=== PATIENT | female | born 1985 | race Caucasian/White ===

== ENCOUNTER 2020-03-21 17:59 | Emergency (ER) | payer SELFPAY ==
[2020-03-21 18:12] VITALS: BP 134/92; PULSE 83; RESP 18; TEMP 36.9; O2SAT 97
--- NOTE | 2020-03-21 18:24 | ED.SKABFB ---
HPI - Skin/Abscess/Foreign Bdy General Chief complaint: Skin/Abscess/Foreign Body Stated complaint: wound on head Time Seen by Provider: 03/21/20 18:01 Source: patient Mode of arrival: ambulatory Limitations: no limitations History of Present Illness HPI narrative: Patient is a 34-year-old female who presents with a rash to forehead x2 to 3 days. Patient has a history of thrombocytosis. She denies any other past medical history. Patient reports rash started as pimples . She reports she squeezed pimples and the area had spread by next a.m. Patient reports using warm compresses without relief. She denies other complaints. MD complaint: rash and lesion Related Data Home Medications Medication Instructions Recorded Confirmed aspirin [Adult Low Dose Aspirin] PO 03/21/20 Allergies Allergy/AdvReac Type Severity Reaction Status Date / Time amoxicillin Allergy Unknown RASH/NUMBNESS Verified 03/21/20 18:21 IN TONGUE clavulanic acid Allergy Unknown RASH/NUMBNESS Verified 03/21/20 18:21 IN TONGUE Review of Systems Review of Systems: Narrative: CONSTITUTIONAL: Denies fever, chills, or sweats. EYES: Denies visual changes, redness, or discharge. ENT: Denies rhinorrhea, congestion, sore throat, or otalgia. CARDIOVASCULAR: Denies chest pain, palpitations, or edema. RESPIRATORY: Denies cough or dyspnea. GASTROINTESTINAL: Denies abdominal pain, nausea, vomiting, or diarrhea. GENITOURINARY: Denies dysuria or hematuria. SKIN: Rash to forehead. MUSCULOSKELETAL: Denies back pain, joint pain, or myalgia. NEUROLOGIC: Denies headache, numbness, dizziness, or weakness. PSYCHIATRIC: Denies anxiety or depression. [facility] Past Medical History Medical History (Updated 03/21/20 @ 18:37 by ANUM Wang) Thrombocytosis Surgical History Surgical History (Updated 03/21/20 @ 18:32 by ANUM Wang) No significant past surgical history Social History Social History (Updated 03/21/20 @ 18:33 by ANUM Wang) Smoking status: Never smoker Alcohol intake: current Alcohol use details: occasional Substance use: never Living arrangements: alone Occupation/Education: occupation Gender identity (if verbalized by the patient): Female Exam Narrative: Exam Narrative: GENERAL: Well-appearing, well-nourished, and in no acute distress. HEAD: Normocephalic, atraumatic. EYES: No redness or drainage. ENT: Mucous membranes pink and moist. Nares clear. No rhinorrhea. TMs normal bilaterally. Throat normal. Uvula midline. NECK: AROM. Supple. No lymphadenopathy. CHEST: No respiratory distress. Clear to auscultation. HEART: Regular rate and rhythm. No murmur appreciated. Normal peripheral pulses. EXTREMITIES: Normal range of motion. SKIN: Warm, dry, no rash. NEURO: No focal deficits. Alert and oriented x3. Gait steady. PSYCH: Normal affect. No signs of depression or anxiety. Course Vital Signs Vital signs: Vital Signs Temperature 36.9 C 03/21/20 18:12 Pulse Rate 83 03/21/20 18:12 Respiratory Rate 18 03/21/20 18:12 Blood Pressure 134/92 H 03/21/20 18:12 Pulse Oximetry 97 03/21/20 18:12 Temperature 36.9 C 03/21/20 18:12 Pulse Rate 83 03/21/20 18:12 Respiratory Rate 18 03/21/20 18:12 Blood Pressure 134/92 H 03/21/20 18:12 Pulse Oximetry 97 03/21/20 18:12 MDM - Skin/Abscess/Foreign Bdy MDM Narrative Medical decision making narrative: Patient appears to have rash with mild cellulitis to her forehead. No drainage at this time. Patient to be started on Mupirocin ointment and clindamycin as infection most likely MRSA from patient's initial description. Patient reports that she may be allergic to TMP/SMX. Patient is stable for discharge to home with outpatient follow-up. Patient aware of signs and symptoms that would cause further evaluation. Differential Diagnosis Differential diagnosis: Likely abscess of skin or subcutaneous tissue and impetigo
== END 2020-03-21 19:00 | disposition home or self-care (01) ==
PROVIDERS: Emergency Provider Nurse Practitioner; PCP Internal Medicine Gastroenterology
DX: L01.00 Impetigo, unspecified (principal); L03.211 Cellulitis of face; Z79.82 Long term (current) use of aspirin
CPT/HCPCS: 99283

== ENCOUNTER 2020-07-03 17:37 | Emergency (ER) | payer BC, SELFPAY ==
--- NOTE | 2020-07-03 17:41 | ED.GENADULT ---
HPI - General Adult General Chief complaint: Skin/Abscess/Foreign Body Stated complaint: Forehead Swollen Time Seen by Provider: 07/03/20 17:41 Source: patient Mode of arrival: ambulatory Limitations: no limitations History of Present Illness HPI narrative: 34-year-old female patient presents to the [facility] with complaints of a wound to the middle of the forehead. Patient states back in March 2020 she had a pimple to the middle forehead that she popped and ended up getting infected and she stated that she was seen at [place] [facility] they diagnosed her with a staph infection and treated her with some oral clindamycin. Patient states it is starting to heal up but it feels like it never completely healed all the way. Patient states there was some little red dots there that she noticed a couple of days ago and states that she tried to cleanse it with alcohol yesterday and today is caused it to become more red, dry and feels like she has swelling to the forehead area. Denies any fevers, body aches or chills. Denies any discharge coming from the wound. Denies putting anything on the wound besides the alcohol. Related Data Allergies Allergy/AdvReac Type Severity Reaction Status Date / Time amoxicillin Allergy Intermediate RASH/NUMBNESS Verified 07/03/20 17:41 IN TONGUE clavulanic acid Allergy Intermediate RASH/NUMBNESS Verified 07/03/20 17:42 IN TONGUE Review of Systems Review of Systems: Narrative: CONSTITUTIONAL: Denies fever, chills, or sweats. EYES: Denies visual changes, redness, or discharge. ENT: Denies rhinorrhea, congestion, sore throat, or otalgia. CARDIOVASCULAR: Denies chest pain, palpitations, or edema. RESPIRATORY: Denies cough or dyspnea. GASTROINTESTINAL: Denies abdominal pain, nausea, vomiting, or diarrhea. GENITOURINARY: Denies dysuria or hematuria. SKIN: Denies rash or itching. Positive wound to forehead since yesterday MUSCULOSKELETAL: Denies back pain, joint pain, or myalgia. NEUROLOGIC: Denies headache, numbness, or weakness. PSYCHIATRIC: Denies anxiety or depression. [facility] Past Medical History Medical History Thrombocytosis Surgical History Surgical History No significant past surgical history Social History Social History Smoking status: Never smoker Alcohol intake: current Substance use: never Gender identity (if verbalized by the patient): Female Comments At the time of my signature I agree with nursing past medical history, surgical, social, and family history. There is no relevant family history pertinent to the presenting complaint. Exam Narrative: Exam Narrative: GENERAL: Well-appearing, well-nourished, and in no acute distress. HEAD: Normocephalic, atraumatic. EYES: PERRLA and EOMI. ENT: Nares clear, no rhinorrhea or epistaxis. Mucous membranes moist. NECK: Supple. No lymphadenopathy CHEST: Clear to auscultation. No respiratory distress. HEART: Regular rate and rhythm. No murmur heard. Normal peripheral pulses. ABDOMEN: Soft, nontender, nondistended, normal active bowel sounds. EXTREMITIES: Normal range of motion. No edema. SKIN: Warm, dry, no rash. Patient has approximately 1/2 cm in diameter flat scaly dry erythemic wound area to the middle of the forehead. Very slight swelling noted but no warmth. No active discharge. NEURO: No focal deficits. Alert and oriented x3. Course Vital Signs Vital signs: Vital Signs Temperature 36.6 C 07/03/20 17:58 Pulse Rate 79 07/03/20 17:58 Respiratory Rate 17 07/03/20 17:58 Blood Pressure 144/88 H 07/03/20 17:58 Pulse Oximetry 100 07/03/20 17:58 Temperature 36.6 C 07/03/20 17:58 Pulse Rate 79 07/03/20 17:58 Respiratory Rate 17 07/03/20 17:58 Blood Pressure 144/88 H 07/03/20 17:58 Pulse Oximetry 100 07/03/20 17:58 Vital signs reviewed
[2020-07-03 17:58] VITALS: BP 144/88; PULSE 79; RESP 17; TEMP 36.6; O2SAT 100
== END 2020-07-03 18:15 | disposition home or self-care (01) ==
PROVIDERS: Emergency Provider Nurse Practitioner Family; PCP Internal Medicine Gastroenterology
DX: S01.80XD Unspecified open wound of other part of head, subsequent encounter (principal); X58.XXXD Exposure to other specified factors, subsequent encounter; D47.3 Essential (hemorrhagic) thrombocythemia
CPT/HCPCS: 99213; G0463

== ENCOUNTER 2021-02-21 11:01 | Emergency (ER) | payer BC, SELFPAY ==
[2021-02-21 11:10] VITALS: BP 92/62; PULSE 107; RESP 18; TEMP 37.1; O2SAT 98
--- NOTE | 2021-02-21 11:33 | ED.URI ---
HPI - URI/Sore Throat General Chief Complaint: Upper Respiratory Infection Stated Complaint: EARACHE/COUGH/FEVER S/P COVID Time Seen by Provider: 02/21/21 11:23 Source: patient and RN notes reviewed Mode of arrival: ambulatory Limitations: no limitations History of Present Illness HPI Narrative: Patient presents today complaining of right ear pain, postnasal drip leading to cough that is worse at night. Patient just recovered from COVID-19. While she was COVID-19 positive, she was diagnosed with a right otitis media and given Z-Regino from a local urgent care. Patient states her symptoms did not improve after she took it. She currently rates her ear pain 5/10 has been taking Tylenol with mild relief. MD elicited complaint: cough and other (Ear pain) Related Data Allergies Allergy/AdvReac Type Severity Reaction Status Date / Time amoxicillin Allergy Intermediate RASH/NUMBNESS Verified 07/03/20 17:41 IN TONGUE clavulanic acid Allergy Intermediate RASH/NUMBNESS Verified 07/03/20 17:42 IN TONGUE Review of Systems Review of Systems: CONSTITUTIONAL: Denies body aches, fever, chills, or sweats. EYES: Denies visual changes, redness, or discharge. ENT: Denies rhinorrhea, congestion+ sore throat, ear pain CARDIOVASCULAR: Denies chest pain, palpitations, or edema. RESPIRATORY: Denies dyspnea.+ Cough GASTROINTESTINAL: Denies abdominal pain, nausea, vomiting, or diarrhea. GENITOURINARY: Denies dysuria or hematuria. SKIN: Denies rash, itching, or wounds. MUSCULOSKELETAL: Denies back pain, joint pain, or myalgia. NEUROLOGIC: Denies headache, numbness, tingling, or weakness. PSYCH: Denies depression or anxiety. [facility] Past Medical History Medical History Thrombocytosis Surgical History Surgical History No significant past surgical history Social History Social History Smoking status: Never smoker Alcohol intake: current Alcohol use details: occasional Substance use: never Gender identity (if verbalized by the patient): Female Comments At time of signature, I have reviewed and agree with nursing past medical, surgical, social and family history unless otherwise noted. Please see nursing chart for further information. There is no relevant family history pertinent to the presenting complaint Exam Narrative: GENERAL: Well-appearing, well-nourished, and in no acute distress. HEAD: Normocephalic, atraumatic. EYES: EOMI. No redness or drainage. Conjunctivae normal. ENT: Mucous membranes pink and moist. Nares clear. No rhinorrhea. TMs normal bilaterally. Throat normal. Uvula midline. NECK: Normal AROM. Supple. No lymphadenopathy. CHEST: No respiratory distress. Clear to auscultation. HEART: Regular rate and rhythm. No murmur appreciated. Normal peripheral pulses. EXTREMITIES: Normal range of motion. No edema. SKIN: Warm, dry, no rash. Capillary refill normal. Normal skin turgor. NEURO: No focal deficits. Alert and oriented x3. Gait steady. PSYCH: Normal affect. No signs of depression or anxiety. Course Vital Signs Vital signs: Vital Signs Temperature 98.8 F 02/21/21 11:10 Pulse Rate 107 H 02/21/21 11:10 Respiratory Rate 18 02/21/21 11:10 Blood Pressure 92/62 L 02/21/21 11:10 Pulse Oximetry 98 02/21/21 11:10 Temperature 98.8 F 02/21/21 11:10 Pulse Rate 107 H 02/21/21 11:10 Respiratory Rate 18 02/21/21 11:10 Blood Pressure 92/62 L 02/21/21 11:10 Pulse Oximetry 98 02/21/21 11:10 Reviewed. Pt has been instructed to follow up with his PCP regarding his elevated blood pressure today. MDM - URI/Sore Throat Differential Diagnosis Differential diagnosis: Likely upper respiratory infection, otitis media, sinusitis, viral infection and bronchitis Critical Care Time Critical Care Time Critical
== END 2021-02-21 11:45 | disposition home or self-care (01) ==
PROVIDERS: Emergency Provider Nurse Practitioner; PCP Internal Medicine Gastroenterology
DX: J40 Bronchitis, not specified as acute or chronic (principal)
CPT/HCPCS: 99213; G0463

== ENCOUNTER 2021-03-30 07:28 | Emergency (ER) | payer BC, SELFPAY ==
[2021-03-30 07:45] VITALS: BP 138/91; PULSE 97; RESP 16; O2SAT 100
--- NOTE | 2021-03-30 08:13 | ED.SKABFB ---
HPI - Skin/Abscess/Foreign Bdy General Chief complaint: Skin/Abscess/Foreign Body Stated complaint: skin issue face Time Seen by Provider: 03/30/21 08:07 Source: patient History of Present Illness HPI narrative: Patient returns with swelling on her forehead. Patient reports she woke up with some swelling and erythema to her forehead. She reports she had a similar event approximately 1 year ago diagnosed with a staph infection that resolved with antibiotics. Reports feels boggy but does not know tenderness to the area. She denies any fevers, chills. She denies any trauma or change in visions headache nausea or vomiting Related Data Allergies Allergy/AdvReac Type Severity Reaction Status Date / Time amoxicillin Allergy Intermediate RASH/NUMBNESS Verified 03/30/21 07:48 IN TONGUE clavulanic acid Allergy Intermediate RASH/NUMBNESS Verified 03/30/21 07:48 IN TONGUE Review of Systems Review of Systems: CONSTITUTIONAL: Denies fever, chills, or sweats. EYES: Denies visual changes, redness, or discharge. ENT: Denies rhinorrhea, congestion, sore throat, or otalgia. CARDIOVASCULAR: Denies chest pain, palpitations, or edema. RESPIRATORY: Denies cough or dyspnea. GASTROINTESTINAL: Denies abdominal pain, nausea, vomiting, or diarrhea. GENITOURINARY: Denies dysuria or hematuria. SKIN: Denies rash or itching. MUSCULOSKELETAL: Denies back pain, joint pain, or myalgia. NEUROLOGIC: Denies headache, numbness, dizziness, or weakness. PSYCHIATRIC: Denies anxiety or depression. All systems reviewed & are unremarkable except as noted in HPI and below PMFSH Past Medical History Medical History Thrombocytosis Surgical History Surgical History No significant past surgical history Social History Social History Smoking status: Never smoker Alcohol intake: current Alcohol use details: occasional Substance use: never Gender identity (if verbalized by the patient): Female Exam Narrative: GENERAL: Well-appearing, well-nourished, and in no acute distress. HEAD: Normocephalic, atraumatic. 1 x 2 area of erythema just lateral to midline on the forehead there is overlying healing scab no purulent drainage no focal fluctuance EYES: PERRLA and EOMI. ENT: Nares clear, no rhinorrhea or epistaxis. Mucous membranes moist. NECK: Supple. No masses. No JVD EXTREMITIES: Normal range of motion. No edema. SKIN: Warm, dry, no rash. NEURO: No focal deficits. Alert and oriented x3. PSYCH: Normal mood and affect. Course Vital Signs Vital signs: Vital Signs Pulse Rate 97 03/30/21 07:45 Respiratory Rate 16 03/30/21 07:45 Blood Pressure 138/91 H 03/30/21 07:45 Pulse Oximetry 100 03/30/21 07:45 Pulse Rate 97 03/30/21 07:45 Respiratory Rate 16 03/30/21 07:45 Blood Pressure 138/91 H 03/30/21 07:45 Pulse Oximetry 100 03/30/21 07:45 MDM - Skin/Abscess/Foreign Bdy MDM Narrative Medical decision making narrative: H&P as above, vss, pt looks clinically well, exam small amount of erythema and edema to the forehead, bedside ultrasound without focal area of fluid collection, additional labs/img considered, symptomatic relief available as needed, on reevaluation pt continues to looks clinically well. Suspect early cellulitis, dns severe sepsis, severe dehydration, abscess. plan to tx/monitor as op w/ pcm f/u findings/plan discussed with pt, pt agree/comfortable with plan, return precautions given Discharge Plan Discharge Clinical Impression: Cellulitis Qualifiers: Site of cellulitis: face Qualified Code(s): L03.211 - Cellulitis of face Patient Disposition: Home, Self-Care Condition: Improved Instructions: Antibiotic Form, Cellulitis (ED), Acne (ED) Additional Instructions: Please return if your symptoms worsen or fail to improve. If you deve
== END 2021-03-30 08:31 | disposition home or self-care (01) ==
PROVIDERS: Emergency Provider Emergency Medicine; PCP Internal Medicine Gastroenterology
DX: L03.211 Cellulitis of face (principal)
CPT/HCPCS: 99283

== ENCOUNTER → 2022-07-31 08:12 | Outpatient (CLI) | payer OTHER, SELFPAY ==
--- NOTE | ~2022-07-31 | US_ITS ---
Abdominal Sonogram: Real-time sonographic imaging of the abdomen was performed. Clinical History: Essential thrombocytosis Findings: The liver is normal in size, without intrahepatic biliary dilatation. There are multiple h yperechoic masses throughout the liver, largest measuring 8.5 cm in maximum diameter. Main portal vei n demonstrates normal direction of flow. The spleen is normal in size without evidence of focal lesio n. The gallbladder is well distended, and appears normal with no evidence of gallstone or wall thick ening. The common bile duct measures 3 mm. The visualized pancreas, aorta, and IVC are unremarkable. The right kidney measures 9.1 cm in length and the left kidney measures 10.0 cm. There is no hydro nephrosis or renal calculus. Impression: Multiple hyperechoic hepatic masses, measuring up to 8.5 cm in maximum diameter. Findings suggest mul tiple hepatic hemangiomas. Pre and postcontrast MR should be considered to more definitively confirm this diagnosis. Reviewed, dictated and finalized at [facility]. [employer]FORMAT[employer] RESEARCH TECHNICIAN Impression: Multiple hyperechoic hepatic masses, measuring up to 8.5 cm in maximum diameter . Findings suggest multiple hepatic hemangiomas. Pre and postcontrast MR should be considered to more definitively confirm this diagnosis.
== END ==
PROVIDERS: PCP Internal Medicine Gastroenterology
DX: D69.59 Other secondary thrombocytopenia (principal)
CPT/HCPCS: 76700

== ENCOUNTER 2023-12-28 07:56 | Emergency (ER) | payer OTHER, SELFPAY ==
[2023-12-28 08:00] VITALS: BP 127/88; PULSE 86; RESP 16; TEMP 36.7; O2SAT 99
--- NOTE | 2023-12-28 08:08 | ED.GENADULT ---
HPI - General Adult General Chief complaint: Wound/Laceration Stated complaint: discharge from suture site Time Seen by Provider: 12/28/23 08:00 History of Present Illness HPI narrative: 38-year-old female presenting to the emergency department for evaluation for wound check after having a cyst removed on 12/17. Patient states she had outpatient surgery to have a cyst removed near umbilicus on 12/17. Patient states that she did notice some clear yellow discharge from the wound and became concerned. Patient denies any worsening pain. Patient was unable to get a hold of her sterilization tech and was concerned so she presented to the emergency department for evaluation. Patient denies any other pain or complaint. Related Data Allergies Allergy/AdvReac Type Severity Reaction Status Date / Time amoxicillin Allergy Intermediate RASH/NUMBNESS Verified 12/28/23 08:05 IN TONGUE clavulanic acid Allergy Intermediate RASH/NUMBNESS Verified 12/28/23 08:05 IN TONGUE Review of Systems Review of Systems: All systems reviewed & are unremarkable except as noted in HPI and below PMFSH Past Medical History Medical History Thrombocytosis Surgical History Surgical History No significant past surgical history Social History Social History Smoking status: Never smoker Alcohol intake: current Alcohol use details: occasional Substance use: never Living arrangements: alone Occupation/Education: occupation Gender identity (if verbalized by the patient): Female Exam Narrative: APPEARANCE: Well appearing, no pain, no distress, well-nourished. HEAD: normocephalic, atraumatic. EYES: PERRLA/EOMI, conjunctivae clear. NOSE: Normal no drainage NECK: Supple. No adenopathy, no masses. RESPIRATORY: Airway patent, respirations nonlabored. Clear to auscultation bilaterally, no rales, rhonchi, wheezing. CARDIOVASCULAR: Regular rate and rhythm without murmurs rubs or gallops. ABDOMINAL: Soft, nontender, nondistended, normal bowel sounds MUSCULOSKELETAL: Moves all extremities. Strength/ROM intact, No edema, No calf tenderness. NEURO: Alert. Cranial nerves II through XII intact. Good gait. Good coordination SKIN: Well-appearing surgical incision with no surrounding erythema or tenderness to palpation, no fluctuance, no active drainage, bandage does have serosanguineous discharge on it. Course Course Emergency Course: Patient was reassured and encouraged to have close follow-up with her sterilization tech. Vital Signs Vital signs: Vital Signs Temperature 98.1 F 12/28/23 08:00 Pulse Rate 86 12/28/23 08:00 Respiratory Rate 16 12/28/23 08:00 Blood Pressure 127/88 12/28/23 08:00 Pulse Oximetry 99 12/28/23 08:00 Oxygen Delivery Room Air 12/28/23 08:00 Temperature 98.1 F 12/28/23 08:00 Pulse Rate 86 12/28/23 08:00 Respiratory Rate 16 12/28/23 08:00 Blood Pressure 127/88 12/28/23 08:00 Pulse Oximetry 99 12/28/23 08:00 Oxygen Delivery Room Air 12/28/23 08:00 Medical Decision Making MDM Narrative Medical decision making narrative: 38-year-old female presents to the emergency department for a wound check. Wound is well-appearing and does appear to have some serosanguineous drainage. This may be secondary to a resolving hematoma versus resolving seroma. Clinical exam is not concerning for underlying abscess or infection or cellulitis. Patient was updated on the diagnosis and the importance of close follow-up with dermatology and on reasons to return to the emergency department. All questions concerns were addressed patient was well-appearing at time of discharge. Differential Diagnosis Differential Diagnosis: Cellulitis, abscess, seroma, hematoma Vital Signs Vital Signs: Vital Signs Temperature 98.1 F 12/28/23 08
== END 2023-12-28 08:25 | disposition home or self-care (01) ==
LOC: ANHED 08:18
PROVIDERS: Emergency Provider Emergency Medicine; PCP Internal Medicine Gastroenterology
DX: Z48.01 Encounter for change or removal of surgical wound dressing (principal)
CPT/HCPCS: 99281

== ENCOUNTER 2024-08-18 12:53 | Outpatient (CLI) | payer OTHER, SELFPAY ==
--- OUTSIDE RECORDS SUMMARY | 2024-08-18 14:24 | XMS_ITS | Clinical Summary ---
Author Organization [facility] Address [address] [place] [address] Care Team Providers Care Alum Mixer Name Role Phone Jamie Stringer MD Primary Care Provider [phone] Source Comments [facility],non-[facility] Affiliates and Associated Physician Practices is amultiple site organization consisting of ambulatory clinics and hospital sitesin [place], [place], [place] and [place]. This disclosure is being madepursuant to the Care Everywhere program and may not contain all information available regarding this patient. Last updated 18.[facility] [employer] Allergies Active Allergy Reactions Criticality Noted Date Comments Amoxicillin-Pot Clavulanate Angioedema High 12/18/19 19 Medications * Be aware that medications may not be up to date on this document. Alwaysverify current medications with the patient. 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 (FLUBLOCK QUADRIVALENT; 18Y+) (RIV4) 04/21/2023 Family History Medical History Relation Name Comments Diabetes - Type 2 Maternal Grandmother CAD (Coronary Artery Disease) Paternal Grandfather Other Neg Hx Bleeding or narcisa tting Relation Name Status Comments Maternal Grandmother Paternal Grandfather Social History Tobacco Use Types Packs/Day Years Used Date Smoking Tobacco: Never Smokeless Tobacco: Never Tobacco Cessation:Counseling Given: Not Answered Alcohol Use Standard Drinks/Week Comments Yes 2 (1 standard drink = 0.6 oz pur e alcohol) Sex and Gender Information Value Date Recorded Sex Assigned at Not on file Gender Identity Not on file Sexual Orientation Not on file Last Filed Vital Signs Vital Sign Reading Time Taken Comments Blood Pressure 119/76 04/20/2024 3:37 PM INTERNATIONAL GUEST COORDINATOR Pulse 93 04/20/2024 3:37 PM INTERNATIONAL GUEST COORDINATOR Temperature 36.9 C (98.4 F) 04/20/2024 3:37 PM INTERNATIONAL GUEST COORDINATOR Respiratory Rate 20 04/20/2024 3:37 PM INTERNATIONAL GUEST COORDINATOR Oxygen Saturation 99% 04/20/2024 3:37 PM INTERNATIONAL GUEST COORDINATOR Inhaled Oxygen Concentration - - Weight 55 kg (121 lb 3.2 oz) 04/20/2024 3:37 PM INTERNATIONAL GUEST COORDINATOR Height 147.3 cm (4' 10 ) 10/28/2023 3:52 PM CDT Body Mass Index 25.33 10/28/2023 3:52 PM CDT Plan of Treatment Upcoming Encounters Date Type Department Care Team (Late st Contact Info) Description 10/19/2024 3:20 PM CDT Office Visit [facility] - Hematology/Oncology [address] [place] [phone] Angelito Christian MD [address] [facility] [place] [address] Health Maintenance Due Date Last Done Comments PAP SMEAR 1987 HIV SCREENING 11/19/2002 HEPATITIS C SCREENING 11/15/2005 DTAP/TDAP/TD VACCINES (1 - Tdap) 11/19/2006 HEPATITIS B VACCINE (1 of 3 - + 3-dose series) 11/19/2006 COVID-19 VACCINE ( - 2023-2 5 season) 2024 08/10/2021, 07/20/2021 INFLUENZA VACCINE (#1) 2024 04/21/2023 DEPRESSION SCREENING 06/02/2024 ZOSTER VACCINE (1 of 2) 11/19/2037 HIB VACCINE Aged Out No longer eligi ble based on patient's age to complete this topic HPV VACCINE Aged Out No longer eligi ble based on patient's age to complete this topic MENINGOCOCCAL (Group B) VACCINE SHARED DECISION-MAKING Aged Out No longer eligible based on patient's age to complete this topic MENINGOCOCCAL GROUPS A/C/Y/W VACCINE Aged Out No longer eligible b ased on patient's age to complete this topic PNEUMOCOCCAL VACCINE Aged Out No long er eligible based on patient's age to complete this topic Care Teams Alum Mixer Relationship Specialty Start Date End Date Jamie Stringer MD [address] [place] [address] PCP - General 08/05/19
== END 2024-08-18 12:54 | disposition home or self-care (01) ==
PROVIDERS: PCP Internal Medicine Gastroenterology; Visit Provider Obstetrics & Gynecology
DX: N92.6 Irregular menstruation, unspecified (principal)
CPT/HCPCS: 36415; 86850; 86900; 86901

== ENCOUNTER 2024-08-20 00:15 | Day surgery (SDC) | payer OTHER, SELFPAY ==
[2024-08-11 13:09] VITALS: BMI 24.3
--- NOTE | 2024-08-11 13:16 | PC.NURSE ---
Report to the Outpatient Waiting Room, entrance under the green pavilion located off [facility], at time _0600_ on date _[id number]_. Planned Procedure Time: _0730_.? Time changes happen often and if your time is changed the preop area will call you the afternoon before. - You and your visitor will be asked to self-screen and do not enter if you have any COVID symptoms. Please call surgeon if you need to reschedule. - A mask is optional within the hospital at this time. Patients may have clear liquids (water, carbonated beverages, clear teas, apple juice) until 3 hours prior to surgery with a maximum of 20 ounces. - No food from midnight until time of surgery and no smoking, or chewing tobacco (or any form of nicotine). No chewing gum, candy or mints. Take only the following medications with a SIP of water on the morning of surgery: __None DO NOT STOP ANY OF YOUR OTHER PRESCRIPTION MEDICATIONS PRIOR TO SURGERY EXCEPT THE FOLLOWING Hold all vitamins and supplements for 3 days per anesthesiologist. Medications to discontinue per physician Date to take last dose Please no make-up, nail macedonian, hairspray, perfume, deodorant, or body powder the day of surgery.? No jewelry (including any body piercings) or valuables the day of surgery, leave them at home.? Please take a shower or bath the night before, or the morning of, surgery with an antibacterial soap.? Wear comfortable, loose fitting clothing.? - Jewelry must be removed prior to entering the operating room.? Rings and piercings that are not removed may be cut off. - The hospital will not accept responsibility for valuables.? - Please leave all valuables, including medications, at home the day of surgery. If you are going home after surgery, a licensed emergency medical technician/driver must drive you home.? - NO public transportation without another adult if you receive anesthesia. - We recommend that an adult stay with you for 24 hours following discharge. - We also recommend that you do not drive, make important decision, drink alcoholic beverages, or take any drugs that were not prescribed by your health care provider for at least 24 hours after your discharge time. Follow any additional instructions given to you from your surgeon. Telephone instructions given to __Heather__and asked if any additional questions and then verbalized understanding. Patient advised to call surgeon office or pre surgery nurse liaison [phone] if any additional questions.
--- NOTE | 2024-08-17 12:36 | P.HP_ITS ---
H&P: HPI History of Present Illness Date/Time: 08/17/24 12:36 Chief Complaint: Pelvic pain Narrative: 38 year 0 admitted for diagnostic laparoscopy secondary pain. She has known fibroid but has no other findings on ultrasound she complains of pain dyspareunia and menstrual discomfort. She will undergo laparoscopy. Risks and benefits reviewed including but exclusive of aspiration, bleeding, tra nsfusion, perforation injury to bowel bladder, ureters, or other internal organs with need for laparotomy. She received the ACOG handout laparoscopy. She had all questions answered. She asked to proceed. Review of Systems Review of Systems: All systems reviewed & are unremarkable except as noted in HPI and below PMFSH Past Medical History Medical History Thrombocytosis Surgical History Surgical History No significant past surgical history Social History Social History Smoking status: Never smoker Alcohol intake: current Alcohol use details: occasional Substance use: never Living arrangements: with family Occupation/Education: occupation Gender identity (if verbalized by the patient): Female Spiritual care concerns: No Meds Home Medications and Allergies Home Medications ?Medication ?Instructions ?Recorded ?Confirmed ?Type No Home Medications 08/11/24 08/11/24 History Allergies Allergy/AdvReac Type Severity Reaction Status Date / Time amoxicillin Allergy Intermediate RASH/NUMBNESS Verified 08/11/24 13:09 IN TONGUE clavulanic acid Allergy Intermediate RASH/NUMBNESS Verified 08/11/24 13:09 IN TONGUE Exam Const: General: cooperative, healthy appearing and comfortable Nutritional Appearance: average body habitus Orientation/consciousness: oriented to person, oriented to place and oriented to time HENMT: Head: normal to inspection Resp: Effort & Inspection: normal respiratory effort Cardio: Rate: regular rate Rhythm: regular rhythm Heart sounds: S1 normal heart sound present and S2 normal heart sound present GI: Inspection: normal to inspection : External Female Exam: normal external appearance Speculum Exam - Vagina: normal appearance of the vagina Speculum Exam - Cervix: normal appearance of the cervix Bimanual exam- vagina & uterus: enlarged Bimanual Exam- Adnexa, other: tender bilaterally Assessment and Plan Assessment and plan (1) Pelvic pain: Code(s): R10.2 - Pelvic and perineal pain Status: Acute Plan Proceed with diagnostic laparoscopy
[2024-08-20] VITALS (10 sets, daily range): BP systolic 91–147; BP diastolic 65–98; PULSE 61–77; RESP 10–18; TEMP 36.8–37.2; O2SAT 96–100
--- OUTSIDE RECORDS SUMMARY | 2024-08-20 00:18 | XMS_ITS | Clinical Summary ---
Author Organization [facility] Address [address] [place] [address] Care Team Providers Care Loadmaster Name Role Phone Jamie Stringer MD Primary Care Provider [phone] Source Comments [facility],non-[facility] Affiliates and Associated Physician Practices is amultiple site organization consisting of ambulatory clinics and hospital sitesin [place], [place], [place] and [place]. This disclosure is being madepursuant to the Care Everywhere program and may not contain all information available regarding this patient. Last updated 18.[facility] [employer] Allergies Active Allergy Reactions Criticality Noted Date [...] Comments Blood Pressure 119/76 04/20/2024 3:37 PM BILLING DEPARTMENT SUPERVISOR Pulse 93 04/20/2024 3:37 PM BILLING DEPARTMENT SUPERVISOR Temperature 36.9 C (98.4 F) 04/20/2024 3:37 PM BILLING DEPARTMENT SUPERVISOR Respiratory Rate 20 04/20/2024 3:37 PM BILLING DEPARTMENT SUPERVISOR Oxygen Saturation 99% 04/20/2024 3:37 PM BILLING DEPARTMENT SUPERVISOR Inhaled Oxygen Concentration - - Weight 55 kg (121 lb 3.2 oz) 04/20/2024 3:37 PM BILLING DEPARTMENT SUPERVISOR Height 147.3 cm (4' 10 ) 10/28/2023 3:52 PM CDT Body Mass Index 25.33 10/28/2023 3:52 PM CDT Plan of Treatment Upcoming Encounters Date Type Department Care Team (Late st Contact Info) Description 10/19/2024 3:20 PM CDT Office Visit [facility] - Hematology/Oncology [address] [place] [phone] Angelito Christian MD [address] [facility] [place] [address] Health Maintenance Due Date Last Done Comments [...] age to complete this topic Care Teams Loadmaster Relationship Specialty Start Date End Date Jamie Stringer MD [address] [place] [address] PCP - General 08/05/19
--- NOTE | 2024-08-20 06:00 | WPDHPUPDATE1 ---
History and Physical Update Update Date/Time: 08/20/24 06:00 History and Physical has been reviewed, including an updated exam of the patient. There are NO changes in the patient's condition. Risks, benefits, and alternatives have been discussed and questions answered. Patient agrees to proceed with procedure.
[2024-08-20 06:20] LABS: BEDSIDEPREGUCG Negative (Negative)
[2024-08-20] MEDS: LACTATED RINGERS 1,000 ML 30 ML IV CONT (06:30)
[2024-08-20] MEDS: KETOROLAC 15 MG/ML VIAL (*BKC) IV PUSH (06:50)
[2024-08-20] MEDS: ACETAMINOPHEN 500 MG TABLET 1000 MG PO (06:50)
[2024-08-20] MEDS: SCOPOLAMINE 1 MG PATCH 1 PATCH TRANSDERM (07:03)
--- NOTE | 2024-08-20 07:06 | P.PNAN_ITS ---
Anes - Initial Pre Proc Eval Procedure: Operation Date: 08/20/24 07:30 Proposed Procedures p Diagnostic Laparoscopy - Koko Villagomez MD Date/Time: 08/20/24 07:06 Surgeon: Koko Villagomez MD Pre Op Diagnosis: pelvic pain, uterine fibroids, irregular bleeding Patient Data Age: 38 Gender: F Height: 1.5 m Weight: 52.8 kg Last Vital Signs Temp 36.8 C 08/20/24 06:10 Pulse 71 08/20/24 06:10 Resp 18 08/20/24 06:10 BP 124/83 08/20/24 06:10 Pulse Ox 100 08/20/24 06:10 O2 Del Method Room Air 08/20/24 06:10 Allergies Allergy/AdvReac Type Severity Reaction Status Date / Time amoxicillin Allergy Intermediate RASH/NUMBNESS Verified 08/20/24 06:18 IN TONGUE clavulanic acid Allergy Intermediate RASH/NUMBNESS Verified 08/20/24 06:18 IN TONGUE Home Medications ?Medication ?Instructions ?Recorded ?Confirmed ?Type hydrocodone 5 mg-acetaminophen 325 1 tablet PO Q4H PRN pain #20 tabs 08/20/24 Rx mg tablet Laboratory Tests 08/20/24 06:17 POC Urine HCG, Qual Negative (Negative) Patient hx anesthesia problems: none Family hx anesthesia problems: none Results Review: All pre-operative results and documents have been reviewed as part of the pre- operative evaluation. [facility] Past Medical History Medical History Thrombocytosis Surgical History Surgical History No significant past surgical history Social History Social History Smoking status: Never smoker Alcohol intake: current Alcohol use details: occasional Substance use: never Living arrangements: alone Occupation/Education: occupation Gender identity (if verbalized by the patient): Female Spiritual care concerns: No Anes - Eval Final PreProcedure Day of Procedure 08/20/24 07:06 Patient weight: normal Heart: regular rate and rhythm Lungs: clear to auscultation Airway: Mallampati scale class II Neurological: alert and oriented Last oral intake: >/= 8 hours ASA classification: II Emergent: no Anesthetic plan: proceed Anesthesia type and monitoring: general ETT and standard monitoring Results Review: All pre-operative results and documents have been reviewed as part of the pre- operative evaluation. Informed Consent: The patient's anesthetic plan and its attendant risks and benefits were discussed with the patient/family/POA. Questions were solicited and answers provided to the satisfaction of the patient/family/POA.
--- NOTE | 2024-08-20 07:50 | SUR.PREOP ---
Written statement on purple sheet (PAT/Pre-OP Checklist) states: 08-11-24 [id number] discussed hx thrombocytosis c Dr Landers. Says no labs needed for this Initialed by Artur Contreras RN
--- NOTE | 2024-08-20 09:02 | P.OP_ITS ---
Procedure Note - Detailed Date of Procedure 08/20/24 Pre-op Diagnosis pelvic pain, uterine fibroids, irregular bleeding Post-op Diagnosis Same Procedure Performed Laparoscopy with destruction of endometriosis and myomectomy Surgeon Koko Villagomez MD Anesthesia General Indications 38-year-old female with a suspected pedunculated fibroid pelvic pain Findings Pedunculated fibroid was present at the fundus. Area of endometriosis right uterosacral ligament. Normal-appearing ovaries and tubes otherwise. Description of Procedure Patient was prepped draped in the normal sterile fashion placed in the dorsal l ithotomy position. Excellent general trach anesthesia weighted speculum placed posterior fornix vagina. Anterior lip of the cervix grasped with single-tooth tenaculum. Curtis's cannula inserted the cervix and attached to the single-tooth to be used later for uterine manipulation. Bladder was emptied of clear urine the weighted speculum was removed. The gloves were changed. A supraumbilical incision made the Veress needle passed in the abdomen. Abdomen filled with CO2 gas to 15 of mercury. The 5mm trocar advanced in the abdomen under direct visualization assuring no injury. Patient placed in Trendelenburg and a suprapubic incision made. A left lower quadrant incision made the 10mm trocar advanced under direct visualization assuring no injury. Fibroid was noted to be pedunculated at the fundus appeared accessible. Using LigaSure this was clamped burned cut and brought across there appeared to be minimal injury to superior surface of the uterus. Hemostasis was assured. This was then cut in 2 and placed in an Endo-Catch. Small area of endometriosis was seen right uterosacral ligament this was cauterized at 35 w per 2nd irrigation undertaken until clear the instruments were removed from the trocars the trocars removed after gas removed from the abdomen and the incisions closed with 4 Monocryl and glue the left lower quadrant incision was closed the fascia was closed 1st with running 0. Patient was awakened went recovery in satisfactory condition. All sponge, needle, instrument counts were correct. There were no immediate complications Estimated Blood Loss 25 Drains No Packing No Pathology Yes Complications No immediate complications Condition Stable Disposition PACU
[2024-08-20] MEDS: fentaNYL CITRATE INJ (*CRX) 100 MCG/2 ML VIAL 25 MCG IV PUSH (09:55)
[2024-08-20] MEDS: oxyCODONE HCL (*CRX) 5 MG TAB IR PO (10:57)
== END 2024-08-20 11:50 | disposition home or self-care (01) ==
PROVIDERS: PCP Internal Medicine Gastroenterology; Visit Provider Obstetrics & Gynecology
PROC: (CPT 49320; principal; 2024-08-20 07:30)
DX: N80.3C1 Endometriosis of the right uterosacral ligament, unspecified depth (principal); D25.9 Leiomyoma of uterus, unspecified; D75.839 Thrombocytosis, unspecified; Z79.891 Long term (current) use of opiate analgesic
CPT/HCPCS: 58662; 88305; A9270; J1100; J1200; J1885; J2250; J2405; J2704; J3010; J7030; J7120; Q9968

== ENCOUNTER 2024-08-24 19:04 | Inpatient (IN) | payer OTHER, SELFPAY ==
--- NOTE | ~2024-08-24 | US_ITS ---
EXAMINATION:US venous doppler LE BI INDICATION:Pulmonary embolism TECHNIQUE: Multiple grayscale, color flow and Doppler images of the right and left lower extremity de ep venous systems were obtained and reviewed. COMPARISON:CT dated 08/24/2024 FINDINGS: The common femoral, superficial femoral and popliteal veins demonstrate normal respiratory variation, augmentation and compressibility. Color flow is also seen within the posterior tibial, pe roneal, greater saphenous and profunda veins. IMPRESSION: 1: No lower extremity deep venous thrombosis. Reviewed, dictated and finalized at location A.
--- NOTE | ~2024-08-24 | XR_ITS ---
EXAMINATION: XR chest 1V portable Exam Date/Time: 08/24/2024 20:00 CDT HISTORY: c/f post op PNA Comparison: 01/11/2019. RESULT: Lines, tubes, and devices: None. Lungs and pleura: Subsegmental right basilar airspace disease. Right costophrenic angle blunting. Cardiomediastinal silhouette: Stable. Possible small hiatal hernia. Other: No acute osseous or upper abdominal finding. IMPRESSION: Subsegmental right basilar atelectasis/consolidation. Small right pleural effusion. Reviewed, dictated and finalized at location K. IMPRESSION: Subsegmental right basilar atelectasis/consolidation. Small right pleural effus ion.
--- NOTE | ~2024-08-24 | CT_ITS ---
EXAMINATION: CTA chest PE abdomen pel DATE: 08/24/2024 21:32 INDICATION: tachycardic; dimer >2. Recent laproscopic surgery on the 4 suspected fibroid, partia l myomectomy and endometrial implant resected. TECHNIQUE: Computed tomography angiography (CTA) of the chest was performed with 100 mL Omnipaque-350 intravenous contrast timed to evaluate the pulmonary arteries, followed by portal venous phase imagi ng of the abdomen and pelvis. Coronal maximum intensity projection 3D-reconstructions were created by the technologist. The dose-length product (DLP) was 319.88 mGy-cm. Automated exposure control and it erative reconstruction technique were employed. COMPARISON: X-ray chest, same date. FINDINGS: CHEST: Lung parenchyma and airways: Left medial lower lobe and basilar atelectasis. Heterogeneously enhancin g dependent right lower lobe opacities. Mild septal thickening. Patent airways. Pleura: Very small volume bilateral pleural fluid collections. Thoracic inlet, axillae and chest wall: No thyroid or soft tissue mass. Thoracic aorta: No significant dilation. No dissection. Mediastinum: Normal. Heart and pericardium: Mild cardiomegaly. The right atrium is enlarged. RV/LV ratio 1.0. Coronary artery calcifications: Absent. Thoracic bones: No acute osseous finding. Pulmonary arteries: Study quality: Adequate. Acute nonocclusive emboli are present in multiple right lower lobe subsegmental branches. ABDOMEN/PELVIS: Liver: Multiple large hepatic masses, with imaging features classic for hemangiomas, measuring up to 8.7 cm in the left lobe. Biliary/Gallbladder: No bile duct dilation. Pancreas: No mass or duct dilation. Spleen: Normal. Multiple rounded soft tissue densities at the splenic hilum, and enhancement characte ristics are identical to spleen, likely splenosis. Adrenals:No mass. Kidneys: No suspicious mass, obstructing stone, or hydronephrosis. Subcentimeter right midpole hypode nsity, too small to characterize but most likely represents a cyst. GI tract: No small or large bowel dilation. Normal appendix. Mesentery/Peritoneum: No mass or free air. Trace fluid in the bilateral paracolic gutters. Retroperitoneum: No mass. Pelvis: Normal urinary bladder and bilateral ovaries. Superficial 2.1 x 1.2 cm hypodensity in the southern ute rine fundus, which extends slightly beyond the uterine border, with minimal adjacent fluid/stranding, within the range of expected postsurgical change. Soft Tissues: Small, fat-containing umbilical hernia. Subcutaneous stranding over the left lateral ab domen and over the midline, likely from surgical ports Abdominopelvic bones: No acute osseous finding. IMPRESSION: Acute right lower lobe subsegmental pulmonary emboli. RV/LV ratio 1.0. Subsegmental, dependent right lower lobe atelectasis/consolidation. Left medial basilar atelectasis. Trace bilateral pleural effusions. Multiple large hepatic hemangiomas, with the largest measuring up to 8.7 cm. 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 Lymphadenopathy, endometriosis, peritoneal metastases, and other masses are also in the differential. Consider confirm ation with sulfur colloid or heat denatured red blood cell nuclear medicine scanning. 2.1 cm hypodensity in the parenchyma of the uterine fundus consistent with the given surgical history . Trace fluid in the bilateral paracolic gutters. Anterior abdominal wall surgical changes. Reviewed, dictated and finalized at location K. IMPRESSION: Acute right lower lobe subsegmental pulmonary emboli. RV/LV ratio 1.0. Subsegmental, dependent right lower lobe atelectasis/consolidation. Left medial basilar atelectasis. Trace bilateral pleural effusions. Multiple large hepatic hemangiomas, with the largest measuring up to 8.7 cm. Multiple soft tissue nodules at the splenic hilum, presumably related to spleno sis. Lymphadenopathy, endometriosis, peritoneal metastases, and other masses ar e also in the differential. Consider confirmation with sulfur colloid or heat d enatured red blood cell nuclear medicine scanning. 2.1 cm hypodensity in the parenchyma of the uterine fundus consistent with the given surgical history. Trace fluid in the bilateral paracolic gutters. Anterior abdominal wall surgical changes.
[2024-08-24 19:05] VITALS: BP 138/84; PULSE 112; RESP 16; TEMP 37.5; O2SAT 97
--- OUTSIDE RECORDS SUMMARY | 2024-08-24 19:11 | XMS_ITS | Clinical Summary ---
Author Organization [facility] Address [address] [place] [address] Care Team Providers Care Industrial Gas Servicer Supervisor Name Role Phone Jamie Stringer MD Primary Care Provider [phone] Source Comments [facility],non-[facility] Affiliates and Associated Physician Practices is amultiple site organization consisting of ambulatory clinics and hospital sitesin [place], [place], [place] and [place]. This disclosure is being madepursuant to the Care Everywhere program and may not contain all information available regarding this patient. Last updated 18.[facility] [employer] Allergies Active Allergy Reactions Criticality Noted Date [...] Comments Blood Pressure 119/76 04/20/2024 3:37 PM BOX TENDER Pulse 93 04/20/2024 3:37 PM BOX TENDER Temperature 36.9 C (98.4 F) 04/20/2024 3:37 PM BOX TENDER Respiratory Rate 20 04/20/2024 3:37 PM BOX TENDER Oxygen Saturation 99% 04/20/2024 3:37 PM BOX TENDER Inhaled Oxygen Concentration - - Weight 55 kg (121 lb 3.2 oz) 04/20/2024 3:37 PM BOX TENDER Height 147.3 cm (4' 10 ) 10/28/2023 3:52 PM CDT Body Mass Index 25.33 10/28/2023 3:52 PM CDT Plan of Treatment Upcoming Encounters Date Type Department Care Team (Late st Contact Info) Description 10/19/2024 3:20 PM CDT Office Visit [facility] - Hematology/Oncology [address] [place] [phone] Angelito Christian MD [address] [facility]EMATOLOGY & [place] [address] Health Maintenance Due Date Last Done Comments [...] age to complete this topic Care Teams Industrial Gas Servicer Supervisor Relationship Specialty Start Date End Date Jamie Stringer MD [address] [place] [address] PCP - General 08/05/19
[2024-08-24 19:45] LABS: BEDSIDEPREGUCG Negative (Negative)
[2024-08-24 19:53] LABS: Add Urine Microscopic? YES; Appearance Urine Cloudy (Clear); Bacteria Urine 1+ /hpf; Bilirubin Urine Negative (Negative); Blood Urine 3+ (Negative); Color Urine Yellow (Yellow); Glucose Urine UA Negative (Negative); Ketones Urine 1+ mg/dL (Negative); Leukocyte Esterase Ur 1+ LEU/UL (Negative); Nitrate Urine Negative (Negative); Non Pathogenic Casts 0-2; Protein Urine 1+ mg/dL (Negative); RBC Urine >100 /hpf (0-2); Specific Grav Ur 1.021 (1.001-1.035); Squamous Epithelial Cell Urine Moderate /hpf (Few); WBC Urine 21-50 /hpf (0-3); pH Urine 6.5 (5.0-9.0)
--- NOTE | 2024-08-24 19:54 | ED_ITS ---
HPI - Back Pain/Injury General Chief Complaint: Back Pain/Injury Stated Complaint: Back pain, fever since having surgery Time Seen by Provider: 08/24/24 19:24 Source: patient and family Mode of arrival: ambulatory Limitations: no limitations History of Present Illness HPI Narrative: Patient presents with fevers and back pain. She is postop day 4 from a procedure to remove the fibroid and a cyst with Dr. Maximo Villagomez. She notes that her maxi lung temperature was this morning 100.5 ? F. no Tylenol or ibuprofen today but she has been taking 5-325 of Tionesta with her last dose at 9:30 a.m.. She notes that she has some abdominal pain that feels like gas and she has been trying to walk. Her last bowel movement was this afternoon. Her back pain started yesterday in the right upper and mid back including the right flank but then became bilateral today.. She denies any cough chills. Last menstrual period started Friday morning. She has had hematuria which she attributes to this. No dysuria, urgency or frequency. No paresthesias in arms or legs. No nausea or vomiting. She has some associated abdominal pain described as a cramping occasionally but with intermittent sharp pains rated 2 or 3 out of severity. She is not having any pain now well lying down. She has been trying to walk given it felt like gas pain. She has not been sexually active since the procedure. She notes that her back pain becomes a tenseness when taking a breath. Related Data Home Medications ?Medication ?Instructions ?Recorded ?Confirmed ?Last Taken ?Type multivitamin 1 tablet PO DAILY 08/25/24 08/25/24 Unknown History Allergies Allergy/AdvReac Type Severity Reaction Status Date / Time amoxicillin Allergy Intermediate RASH/NUMBNESS Verified 08/20/24 06:18 IN TONGUE clavulanic acid Allergy Intermediate RASH/NUMBNESS Verified 08/20/24 06:18 IN TONGUE PMFSH Past Medical History Medical History Endometriosis determined by laparoscopy 08/20/24 Irregular bleeding Uterine fibroid Pelvic pain Thrombocytosis Surgical History Surgical History S/P laparoscopy w/ destruction of endometriosis and myomectomy w/ Dr Maximo Villagomez 08/20/24 Family History Family History Mother Heart attack Essential thrombocytosis Hypertension Social History Social History Smoking status: Never smoker Alcohol intake: never Alcohol use details: occasional Substance use: never Do You Feel Safe in your Home?: Yes Lack of Transportation: No Lack of Food: Never True Current Housing: I Have Housing Concerned About Future Housing: No Difficulty Paying Gas/Electric Bills: No Difficulty Paying for Meds: No Currently Unemployed: No Education: Master's Degree or Higher Difficulty w/ Childcare or Family Care: No Living arrangements: alone Occupation/Education: occupation Gender identity (if verbalized by the patient): Female Spiritual care concerns: No Exam 2 Narrative: GENERAL: Well-appearing, well-nourished, and in no acute distress. HEAD: Normocephalic, atraumatic. EYES: Non injected, non icteric ENT: Nares clear, no rhinorrhea or epistaxis. NECK: Supple. CHEST: Speaking in full sentences. No respiratory distress. HEART: Tachycardic rate and rhythm. . ABDOMEN: Soft, nondistended. Three surgical a site scars covered with skin glue/Dermabond. There is questionable scant purulent discharge under the most lateral site, none have drained through/under/around the skin glue. Otherwise sites are without erythema or induration. Abdomen nontender to palpation x4 quadrants except mild suprapubic TTP. BACK: No midline pain. No CVA tenderness bilaterally. No ecchymosis. Non tender to palpation. Demonstrates flexion and extension. EXTREMITIES: Normal range of motion. No lower extremity edema. Sensation intact throughout. SKIN: Warm, dry, no rash. NEURO: No focal deficits. Alert and oriented x3. PSYCH: Normal mood and affect. Course Vital Signs Vital signs: Vital Signs Temperature 99.5 F 08/24/24 19:05 Pulse Rate 112 H 08/24/24 19:05 Respiratory Rate 16 08/24/24 19:05 Blood Pressure 138/84 08/24/24 19:05 Pulse Oximetry 97 08/24/24 19:05 Oxygen Delivery Room Air 08/24/24 19:05 Temperature 97.0 F L 08/25/24 14:31 Pulse Rate 88 08/25/24 16:00 Respiratory Rate 18 08/25/24 14:31 Blood Pressure 101/62 08/25/24 14:31 Pulse Oximetry 98 08/25/24 14:31 Oxygen Delivery Room Air 08/25/24 08:54 MDM - Back Pain/Injury MDM Narrative Medical decision making narrative: Patient presents with low-grade fevers as well as mid back pain. She is post op from a procedure on 08/20/[address] Mari Villagomez. In the emergency department she is afebrile with vital signs notable for tachycardia. DIFFERENTIAL DIAGNOSES: Given location of pain, concern for postop pneumonia (especially given location of the pain), UTI with pyelonephritis, intra- abdominal abscess, pulmonary embolism, strain lumbar region, retroperitoneal bleeding, acute viral syndrome Urinalysis concerning for infection; given recent instrumentation and her symptoms, reasonable to treat. No prior culture for review. Will give 1st dose ceftriaxone given this might represent pyelonephritis. Patient has a thrombocytosis. No prior for comparison although thrombocytosis is listed in the EMR in her PMH, thus appears chronic. Very mild AST and ALT elevation. Plan was to obtain CT abdomen pelvis given her recent surgical operation. Given her dimer is greater than 2, will proceed with CTA imaging of chest abdomen and pelvis. Discussed with radiologist Dr Craven. Subsegmental lower lobe pulmonary emboli. Some evidence of right heart strain, but small clot burden so possibly chronic. Atelectasis, possible infection. 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 Splenic findings - Possible endometriosis given the - denatured RBC scan and/or another NM scan can be done with nuclear medicine, possibly at another facility. Versus possibly splenosis (especially if any trauma in prior days). Given the question of urinary tract infection and possible lung infection/pneumonia, out of an abundance of precaution patient is given ceftriaxone. PESI (Pulmonary Embolism Severity Index): 56?points (36 for age + 20 for HR) Class I, Very Low Risk: 0-1.6% 30-day mortality in this group. [place] Criteria for outpatient treatment of PE: Does not meet criteria given high risk of bleeding since surgery <2 weeks ago. Discussed with Dr Cardenas (covering for Maximo Villagomez) who recommends Admit to hospitalist and consult ObGyn but if prefer other way around also reasonable. Advises placing the ObGyn admission versus consultation under Maximo Villagomez and he will discuss with him in the morning. Discussed with on-call hospitalist Dr. Lowery who accepts the admission under herself. Heparin orders started (deferred bolus given recent surgery). Bilateral ultrasound DVT study ordered to be performed in the morning when ultrasound technicians are present. Also ordered urine culture given that because of the squamous cells it did not automatically reflex (called lab to process this). Med/surg w/ telemetry bed. When the plan for admission is confirmed with the patient, she verifies understanding and is in agreement. She states that she has not been on control for a while. However, she does already see a landscape supervisor, Dr Christian through [facility], for her thrombocytosis. Medical Records Attestation: I reviewed the patient's medical records. Medical records narrative: Laparoscopy with destruction of endometriosis and myomectomy with Dr Maximo Villagomez 08/20/24 for suspected pedunculated fibroid pelvic pain. 25mL estimated blood loss. Operative note briefly reviewed. Lab Data Attestation: I reviewed the patient's lab results. Lab results narrative: test negative 08/24/24 20:30 08/24/24 20:30 Labs: Lab Results 08/24/24 08/24/24 08/25/24 Range/Units 19:43 20:30 00:36 WBC 9.0 (4.5-10.0) K/mm3 RBC 4.39 (4.2-5.4) M/mm3 Hgb 12.8 (12.0-15.0) g/dL Hct 39.6 (37.0-47.0) % MCV 90.2 (80-100) fl MCH 29.2 (26-34) pg MCHC 32.3 (32-36) g/dl RDW 12.8 (11.5-14.5) % Plt Count 450 H (150-375) k/mm3 MPV 10.2 (7.4-10.4) fl Immature Gran % (Auto) 0.3 (0-0.5) % Neut % (Auto) 84.5 H (45.5-73.1) % Lymph % (Auto) 7.1 L (18.3-44.2) % [place] % (Auto) 7.9 (2.6-8.5) % Eos % (Auto) 0.1 (0-4.4) % Baso % (Auto) 0.1 L (0.2-1.2) % Lymph # (Auto) 0.64 L (0.9-3.2) K/mm3 [place] # (Auto) 0.7 H (0.1-0.6) K/mm3 Eos # (Auto) 0.0 (0-0.3) K/mm3 Baso # (Auto) 0.0 (0.0-0.1) K/mm3 Abs Immat Gran (auto) 0.03 (0.00-0.031) K/mm3 Absolute Neuts (auto) 7.6 H (1.3-6.7) K/mm3 Absolute Nucleated RBC 0.000 (0.0-0.012) K/mm3 Nucleated RBC % 0.0 (0.0-0.2) % PT 14.2 (11.1-14.7) Seconds INR 1.1 APTT 28.6 (22.3-36.8) Seconds D-Dimer 2.91 H (<0.48) ug/mL Sodium 136 L (137-145) mmol/L Potassium 3.7 (3.4-5.0) mmol/L Chloride 103 (98-107) mmol/L Carbon Dioxide 23 (22-30) mmol/L Anion Gap 10 (4-12) mmol/L BUN 11 (7-17) mg/dL Creatinine 0.74 (0.7-1.0) mg/dL Estim Creat Clear Calc Not Reportable Estimated GFR > 60 (59 - ) Glucose 98 (65-110) mg/dL Lactic Acid 0.9 (0.7-2.0) mmol/L Calcium 9.3 (8.4-10.2) mg/dL Total Bilirubin 0.9 (0.2-1.3) mg/dL AST 43 H (14-36) U/L ALT 37 H (6-35) U/L Alkaline Phosphatase 88 (38-126) U/L Troponin I < 0.012 (0.000-0.034) ng/mL NT-Pro-B Natriuret Pep 88 (19.9-100) pg/mL Total Protein 8.0 (6.3-8.2) g/dL Albumin 4.3 (3.5-5.1) g/dL Urine Color Yellow (Yellow) Urine Appearance Cloudy H (Clear) Urine pH 6.5 (5.0-9.0) Ur Specific [place] 1.021 (1.001-1.035) Urine Protein 1+ H (Negative) mg/dL Urine Glucose (UA) Negative (Negative) mg/dL Urine Ketones 1+ H (Negative) mg/dL Ur Blood (Man) 3+ H (Negative) Urine Nitrate Negative (Negative) Urine Bilirubin Negative (Negative) Urine Urobilinogen 1.0 (<2.0) mg/dL Leukocyte Esterase Rfl 1+ H (Negative) URIEL/UL Urine RBC >100 H (0-2) /hpf Urine WBC 21-50 H (0-3) /hpf Ur Squamous Epith Cells Moderate (Few) /hpf Urine Bacteria 1+ H /hpf Urine Casts 0-2 POC Urine HCG, Qual Negative (Negative) Influenza A (RT-PCR) Negative (Negative) Influenza B (RT-PCR) Negative (Negative) RSV (RT-PCR) Negative (Negative) SARS-CoV-2 RNA (RT-PCR) Negative (Negative) 08/25/24 Range/Units 06:47 WBC (4.5-10.0) K/mm3 RBC (4.2-5.4) M/mm3 Hgb (12.0-15.0) g/dL Hct (37.0-47.0) % MCV (80-100) fl MCH (26-34) pg MCHC (32-36) g/dl RDW (11.5-14.5) % Plt Count (150-375) k/mm3 MPV (7.4-10.4) fl Immature Gran % (Auto) (0-0.5) % Neut % (Auto) (45.5-73.1) % Lymph % (Auto) (18.3-44.2) % [place] % (Auto) (2.6-8.5) % Eos % (Auto) (0-4.4) % Baso % (Auto) (0.2-1.2) % Lymph # (Auto) (0.9-3.2) K/mm3 [place] # (Auto) (0.1-0.6) K/mm3 Eos # (Auto) (0-0.3) K/mm3 Baso # (Auto) (0.0-0.1) K/mm3 Abs Immat Gran (auto) (0.00-0.031) K/mm3 Absolute Neuts (auto) (1.3-6.7) K/mm3 Absolute Nucleated RBC (0.0-0.012) K/mm3 Nucleated RBC % (0.0-0.2) % PT (11.1-14.7) Seconds INR APTT 35.1 (22.3-36.8) Seconds D-Dimer (<0.48) ug/mL Sodium (137-145) mmol/L Potassium (3.4-5.0) mmol/L Chloride (98-107) mmol/L Carbon Dioxide (22-30) mmol/L Anion Gap (4-12) mmol/L BUN (7-17) mg/dL Creatinine (0.7-1.0) mg/dL Estim Creat Clear Calc Estimated GFR (59 - ) Glucose (65-110) mg/dL Lactic Acid (0.7-2.0) mmol/L Calcium (8.4-10.2) mg/dL Total Bilirubin (0.2-1.3) mg/dL AST (14-36) U/L ALT (6-35) U/L Alkaline Phosphatase (38-126) U/L Troponin I (0.000-0.034) ng/mL NT-Pro-B Natriuret Pep (19.9-100) pg/mL Total Protein (6.3-8.2) g/dL Albumin (3.5-5.1) g/dL Urine Color (Yellow) Urine Appearance (Clear) Urine pH (5.0-9.0) Ur Specific [place] (1.001-1.035) Urine Protein (Negative) mg/dL Urine Glucose (UA) (Negative) mg/dL Urine Ketones (Negative) mg/dL Ur Blood (Man) (Negative) Urine Nitrate (Negative) Urine Bilirubin (Negative) Urine Urobilinogen (<2.0) mg/dL Leukocyte Esterase Rfl (Negative) URIEL/UL Urine RBC (0-2) /hpf Urine WBC (0-3) /hpf Ur Squamous Epith Cells (Few) /hpf Urine Bacteria /hpf Urine Casts POC Urine HCG, Qual (Negative) Influenza A (RT-PCR) (Negative) Influenza B (RT-PCR) (Negative) RSV (RT-PCR) (Negative) SARS-CoV-2 RNA (RT-PCR) (Negative) Imaging Data Attestation: I personally reviewed and interpreted this imaging study as follows: My impression: CT abdomen pelvis with several large hepatic masses on my independent interpretation Radiologist's impression: Impressions Chest X-Ray 08/24/24 20:26 IMPRESSION: Subsegmental right basilar atelectasis/consolidation. Small right pleural effusion. Chest/Abdomen/Pelvis CTA 08/24/24 22:04 IMPRESSION: Acute right lower lobe subsegmental pulmonary emboli. RV/LV ratio 1.0. Subsegmental, dependent right lower lobe atelectasis/consolidation. Left medial basilar atelectasis. Trace bilateral pleural effusions. Multiple large hepatic hemangiomas, with the largest measuring up to 8.7 cm. 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 Lymphadenopathy, endometriosis, peritoneal metastases, and other masses are also in the differential. Consider confirmation with sulfur colloid or heat denatured red blood cell nuclear medicine scanning. 2.1 cm hypodensity in the parenchyma of the uterine fundus consistent with the given surgical history. Trace fluid in the bilateral paracolic gutters. Anterior abdominal wall surgical changes. ECG Data EKG #1: Attestation: I personally reviewed and interpreted this ECG as follows: ECG completion date: 08/24/24 ECG completion time: 23:51 Interpretation: Sinus tachycardia at a rate of 114 beats per minute. MS interval 168. QRS 88. QT/QTC 314/382. Good R-wave progression across the precordial leads. T-wave inversion in lead 3 but otherwise upright in normal in contiguous inferior leads 2 and AVF. No other T-wave inversions. Discharge Plan Discharge Clinical Impression: UTI (urinary tract infection), Pyelonephritis, Post-op pain, Thrombocytosis, Transaminitis, Pulmonary emboli, Abnormal chest CT, Hepatic hemangioma, Abnormal CT of the abdomen Patient Disposition: Still a Patient Condition: Stable
--- OUTSIDE RECORDS SUMMARY | 2024-08-24 19:56 | XMS_ITS | Clinical Summary ---
Author Organization [facility] Address [address] [place] [address] Care Team Providers Care Lumber Press Operator Name Role Phone Jamie Stringer MD Primary Care Provider [phone] Source Comments [facility],non[facility] Affiliates and Associated Physician Practices is amultiple site organization consisting of ambulatory clinics and hospital sitesin [place], [place], [place] and [place]. This disclosure is being madepursuant to the Care Everywhere program and may not contain all information available regarding this patient. Last updated 18.[facility] [employer] Allergies Active Allergy Reactions Criticality Noted Date [...] Comments Blood Pressure 119/76 04/20/2024 3:37 PM COMMERCIAL CONSTRUCTION PROJECT MANAGER Pulse 93 04/20/2024 3:37 PM COMMERCIAL CONSTRUCTION PROJECT MANAGER Temperature 36.9 C (98.4 F) 04/20/2024 3:37 PM COMMERCIAL CONSTRUCTION PROJECT MANAGER Respiratory Rate 20 04/20/2024 3:37 PM COMMERCIAL CONSTRUCTION PROJECT MANAGER Oxygen Saturation 99% 04/20/2024 3:37 PM COMMERCIAL CONSTRUCTION PROJECT MANAGER Inhaled Oxygen Concentration - - Weight 55 kg (121 lb 3.2 oz) 04/20/2024 3:37 PM COMMERCIAL CONSTRUCTION PROJECT MANAGER Height 147.3 cm (4' 10 ) 10/28/2023 3:52 PM CDT Body Mass Index 25.33 10/28/2023 3:52 PM CDT Plan of Treatment Upcoming Encounters Date Type Department Care Team (Late st Contact Info) Description 10/19/2024 3:20 PM CDT Office Visit [facility] - Hematology/Oncology [address] [place] [id number] Angelito Christian MD [address] [facility] [place] [address] Health Maintenance Due Date Last Done Comments [...] age to complete this topic Care Teams Lumber Press Operator Relationship Specialty Start Date End Date Jamie Stringer MD [address] [place] [address] PCP - General 08/05/19
[2024-08-24 20:36] LABS: Basophils Percent Auto 0.1 % (0.2-1.2); Eosinophils Percent Auto 0.1 % (0-4.4); Hematocrit 39.6 % (37.0-47.0); Hemoglobin 12.8 g/dL (12.0-15.0); Immature Granulocyte Absolute 0.03 K/mm3 (0.00-0.031); Immature Granulocyte Percent A 0.3 % (0-0.5); Lymphocytes Absolute Auto 0.64 K/mm3 (0.9-3.2); Lymphocytes Percent Auto 7.1 % (18.3-44.2); Mean Corpuscular HGB Conc 32.3 g/dl (32-36); Mean Corpuscular Hemoglobin 29.2 pg (26-34); Mean Corpuscular Volume 90.2 fl (80-100); Mean Platelet Volume 10.2 fl (7.4-10.4); Monocytes Absolute Auto 0.7 K/mm3 (0.1-0.6); Monocytes Percent Auto 7.9 % (2.6-8.5); Neutrophils Absolute Auto 7.6 K/mm3 (1.3-6.7); Neutrophils Percent Auto 84.5 % (45.5-73.1); Platelet Count Result 450 k/mm3 (150-375); Red Blood Count 4.39 M/mm3 (4.2-5.4); Red Cell Distribution Width 12.8 % (11.5-14.5)
[2024-08-24 20:45] LABS: Lactic Acid Reflex 0.9 mmol/L (0.7-2.0)
[2024-08-24 20:47] LABS: Alanine Aminotransferase 37 U/L (6-35); Albumin Level 4.3 g/dL (3.5-5.1); Alkaline Phosphatase 88 U/L (38-126); Anion Gap 10 mmol/L (4-12); Aspartate Amino Transferase 43 U/L (14-36); Bilirubin,Total 0.9 mg/dL (0.2-1.3); Blood Urea Nitrogen 11 mg/dL (7-17); Calcium 9.3 mg/dL (8.4-10.2); Carbon Dioxide 23 mmol/L (22-30); Chloride 103 mmol/L (98-107); Estimated Glomerular Filt Rate > 60; Glucose 98 mg/dL (65-110); Potassium 3.7 mmol/L (3.4-5.0); Sodium 136 mmol/L (137-145)
[2024-08-24 20:49] VITALS: BP 128/84; PULSE 110; RESP 15; O2SAT 97
[2024-08-24 20:50] LABS: D Dimer 2.91 ug/mL (<0.48)
[2024-08-24 21:11] LABS: Influenza A QL RT-PCR Negative (Negative); Influenza B QL RT-PCR Negative (Negative); RSV RNA, RT-PCR Negative (Negative); SARS-CoV-2 RNA PCR Negative (Negative)
[2024-08-24 22:09] VITALS: BP 132/96; PULSE 116; RESP 16; O2SAT 100
--- NOTE | 2024-08-24 22:38 | ECG_ITS ---
Test Date: 2024-08-24 23:51:22 Measurements Intervals [place] Rate: 114 P: 53 IN: 168 QRS: 32 QRSD: 88 T: 18 QT: 314 QTc: 434 Interpretive Statements SINUS TACHYCARDIA NONSPECIFIC T-WAVE ABNORMALITY No previous ECG available for comparison Electronically Signed On 08-25-2024 12:55:19 CDT by Dawit Riojas M.D.
[2024-08-24] MEDS: SODIUM CHLORIDE 0.9% IV 500 ML 999 ML IV CONT (23:16)
[2024-08-24 23:19] LABS: NT Pro B Type Natriuretic Pept 88 pg/mL (19.9-100); Troponin I < 0.012 ng/mL (0.000-0.034)
[2024-08-25] VITALS (10 sets, daily range): BP systolic 101–126; BP diastolic 62–82; PULSE 79–116; RESP 16–20; TEMP 36.1–36.6; O2SAT 94–98; BMI 24.5
--- NOTE | 2024-08-25 | ECHO_ITS ---
Patient Info Name: Marleen Donaldson Age: 38 years : 1985 Gender: Female Ht: 58 in Wt: 117 lbs BSA: 1.49 m2 HR: 83 bpm BP: 101 / 62 mmHg Heart Rhythm: Sinus Rhythm Technical Quality: Fair Exam Date: 08/25/2024 4:18 PM Exam Location: Echo Lab Patient Status: Inpatient Admit Date: 08/25/2024 Staff Ordering Physician: Morris Brandon PA-C Slab Miller Operator: Kierra Sahu RDCS Attending Provider: Morris Brandon PA-C Referring Physician: Roma BEDOLLA; Exam Type: CA echo doppler color flow Study Info Indications - Pulmonary embolism Complete two-dimensional, color flow and Doppler transthoracic echocardiogram is performed. Summary 1. Complete two-dimensional, color flow and Doppler transthoracic echocardiogram is performed. 2. There is normal biventricular size and systolic function. Left Ventricle The left ventricle is normal in size and systolic function. The left ventricle ejection fraction is visually estimated to be 60-65%. Right Ventricle The right ventricle is normal in size and systolic function. Left Atria The left atrium is normal size. Right Atria The right atrium is normal size. Atrial Septum The atrial septum is normal. Pulmonic Valve The pulmonic valve is normal. There is no pulmonic valve regurgitation. Mitral Valve The mitral valve is normal. There is no mitral regurgitation. Tricuspid Valve The tricuspid valve is not well visualized. Pericardium/Pleural Pericardium is normal in appearance with no evidence for significant pericardial effusion. Inferior Vena Cava Normal inferior vena cava with <50% collapse upon inspiration consistent with elevated right atrial pressure, 8 mmHg. Normal inferior vena cava with <50% collapse upon inspiration consistent with elevated right atrial pressure, 8 mmHg. Aorta The aortic root at the level of the sinus of Valsalva measures 3.0 cm in diameter. Left Ventricular Outflow Tract Name Value Normal LVOT 2D LVOT Diameter 2.0 cm LVOT Doppler LVOT Peak Gradient 3 mmHg LVOT Mean Gradient 1 mmHg LVOT VTI 15 cm LVOT VTI/AV VTI Ratio 0.8 LVOT Stroke Volume 49 ml LVOT CO 10.5 l/min LVOT CI 7.1 l/min/m2 Pulmonic Valve Name Value Normal RVOT Doppler RVOT Peak Gradient 1 mmHg PV Doppler PV Peak Gradient 3 mmHg Mitral Valve Name Value Normal MV Doppler MV Decel [place] 411 cm/s2 MV PHT 49 ms MV Area (PHT) 4.5 cm2 4.0-5.0 MV Diastolic Function MV E Peak Velocity 69 cm/s MV A Peak Velocity 46 cm/s MV E/A 1.5 MV Decel Time 168 ms MV Annular TDI MV E/e' (Septal) 6.4 <=8.0 MV E/e' (Lateral) 5.4 <=8.0 MV E/e' (Average) 5.9 Tricuspid Valve Name Value Normal TV Regurgitation Doppler TR Peak Velocity 199 cm/s TR Peak Gradient 16 mmHg Estimated PAP/RSVP RA Pressure 8 mmHg <=5 PA Systolic Pressure 24 mmHg <36 RV Systolic Pressure 24 mmHg <36 Aortic Valve Name Value Normal AV Doppler AV Peak Velocity 108 cm/s AV Peak Gradient 5 mmHg AV Mean Gradient 3 mmHg AV VTI 19 cm AV Area (Cont Eq VTI) 2.5 cm2 >=3.0 AV Area (Cont Eq Nilo) 2.4 cm2 AV Regurgitation 2D LVOT Area 3.2 cm2 Ventricles Name Value Normal LV Dimensions 2D/MM IVS Diastolic Thickness (2D) 0.8 cm 0.6-1.0 LVID Diastole (2D) 4.0 cm 3.8-5.2 LVIW Diastolic Thickness (2D) 0.8 cm 0.6-0.9 LVID Systole (2D) 2.5 cm 2.2-3.5 LVOT Diameter 2.0 cm LV Mass (2D Cubed) 94.60 g 67.00-162.00 LV Mass Index (2D Cubed) 64 g/m2 43-95 Relative Wall Thickness (2D) 0.41 LV Fractional Shortening/Ejection Fraction 2D/MM LV Fractional Shortening (2D) 37 % 27-45 LV EF (2D Teicholz) 68 % 54-74 LV Diastolic Volume (4C MOD) 81 ml LV EF (4C MOD) 62 % LV Diastolic Volume (2C MOD) 76 ml LV EF (2C MOD) 60 % LV Diastolic Volume (BP MOD) 79 ml 46-106 LV Diastolic Volume Index (BP MOD) 53 ml/m2 29-61 LV Systolic Volume (BP MOD) 30 ml 14-42 LV Systolic Volume Index (BP MOD) 20 ml/m2 8-24 LV EF (BP MOD) 62 % 54-74 LV Diastolic Length (4C) 7.6 cm LV Systolic Length (4C) 6.0 cm LV Stroke Volume (4C MOD) 51 ml Atria Name Value Normal LA Dimensions LA Volume (4C A-L) 37 ml LA Volume (BP A-L) 32 ml RA Dimensions RA Area (4C) 12.6 cm2 <=18.0 Report Signatures
[2024-08-25] MEDS: HEPARIN SOD/D5W 100 UNITS/ML 25,000 UNITS/250 ML BAG 8 UNITS IV CONT (00:37)
[2024-08-25 01:00] LABS: INR 1.1; Prothrombin Time 14.2 Seconds (11.1-14.7)
[2024-08-25 01:01] LABS: Partial Thromboplastin Time 28.6 Seconds (22.3-36.8)
--- NOTE | 2024-08-25 02:47 | ADMGEN ---
This patient, Marleen Donaldson, was admitted to Medical Room 343-01. Patient/family oriented to hospital policies and general routines including ID bracelet, bed and alarms, visiting hours, pain management, procedures, bathroom and other care routines, personal items, smoking policy, room service/diet, and visiting hours. Information on how to activate the Rapid Response Team has been discussed. Patient/Family are encouraged to report perceived risks to care and to ask questions if they do not understand what they are told or what they should do.
[2024-08-25] MEDS: HYDROcodone/acetaminophen (*CRX) 5-325 MG TABLET 1 TAB PO ×3 (03:11→20:43)
[2024-08-25 07:07] LABS: Partial Thromboplastin Time 35.1 Seconds (22.3-36.8)
[2024-08-25] MEDS: HEPARIN SODIUM 5,000 UNITS/ML VIAL 3500 UNITS IV PUSH (08:26)
--- NOTE | 2024-08-25 08:35 | PM.IMHP ---
H&P: HPI History of Present Illness Date/Time: 08/25/24 08:35 Chief Complaint: Back pain Narrative: Patient is a 38-year-old female who presented to the emergency department due to back pain, abdominal pain and fevers at home. She is day 5 post-op from a fibroid and cyst removal by Dr. Maximo Villagomez. She states the back pain, which started at 3am on 08/24, is located on her right lower flank, was dull and intermittent in nature. Worse with movement and coughing, alleviated at rest. She also reported generalized abdominal discomfort that felt like gas buildup . Also endorses fevers at home, max temp being 100.5 F. Last bowel movement in afternoon of 08/24. Denies any urinary symptoms/complaints. Denies any chest pain, shortness of breath, nausea/vomiting. She recently underwent laparoscopic simple myomectomy and destruction of endometriosis, followed by Dr. Maximo Villagomez, on 08/20. No complications from this procedure. Last menstrual period started Friday morning, has associated hematuria which is normal for her. ED workup: No leukocytosis, H&H wnl, Plt 450, D-dimer 2.91, Na 136, K 3.7, Cl 103, BUN 11, Cr. 0.74, GFR>60, Glucose 98, Lactic Acid 0.9, Ca 9.3, AST 43, ALT 37, Trop <0.012, BNP 88. UA: 3+ Blood, 1+ Leuk Est, Urine RBC >100, Urine WBC >21-50 , Bacteria 1+. Viral panel negative for COVID, Flu A/B, RSV. Blood cultures negative, urine culture pending. Chest XR showed Subsegmental right basilar atelectasis/consolidation. Small right pleural effusion. Chest/Abd/Pelvis CTA showed Acute right lower lobe subsegmental pulmonary emboli, Subsegmental, dependent right lower lobe atelectasis/consolidation. Left medial basilar atelectasis. Trace bilateral pleural effusions. Multiple large hepatic hemangiomas, with the largest measuring up to 8.7 cm. Venous Doppler Study showed No lower extremity deep venous thrombosis. Dr. 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 Review of Systems Review of Systems: All systems reviewed & are unremarkable except as noted in HPI and below PMFSH Past Medical History Medical History Endometriosis determined by laparoscopy 08/20/24 Irregular bleeding Uterine fibroid Pelvic pain Thrombocytosis Surgical History Surgical History S/P laparoscopy w/ destruction of endometriosis and myomectomy w/ Dr Maximo Villagomez 08/20/24 Family History Family History Mother Heart attack Essential thrombocytosis Hypertension Social History Social History Smoking status: Never smoker Alcohol intake: never Alcohol use details: occasional Substance use: never Do You Feel Safe in your Home?: Yes Lack of Transportation: No Lack of Food: Never True Current Housing: I Have Housing Concerned About Future Housing: No Difficulty Paying Gas/Electric Bills: No Difficulty Paying for Meds: No Currently Unemployed: No Education: Master's Degree or Higher Difficulty w/ Childcare or Family Care: No Living arrangements: alone Occupation/Education: occupation Gender identity (if verbalized by the patient): Female Spiritual care concerns: No Meds Home Medications and Allergies Home Medications ?Medication ?Instructions ?Recorded ?Confirmed ?Type hydrocodone 5 mg-acetaminophen 325 1 tablet PO Q4H PRN pain #20 tabs 08/20/24 08/25/24 Rx mg tablet multivitamin 1 tablet PO DAILY 08/25/24 08/25/24 History Allergies Allergy/AdvReac Type Severity Reaction Status Date / Time amoxicillin Allergy Intermediate RASH/NUMBNESS Verified 08/20/24 06:18 IN TONGUE clavulanic acid Allergy Intermediate RASH/NUMBNESS Verified 08/20/24 06:18 IN TONGUE Vital Signs Vital Signs - 24 hr 08/24/24 19:05 08/24/24 20:49 08/24/24 22:09 Temperature 99.5 F Pulse Rate 112 H 110 H 116 H Respiratory Rate 16 15 16 Blood Pressure 138/84 128/84 132/96 H Pulse Oximetry 97 97 100 Oxygen Delivery Room Air 08/25/24 00:20 08/25/24 04:00 08/25/24 05:46 Temperature 98 F Pulse Rate 116 H 100 103 H Respiratory Rate 16 18 Blood Pressure 126/82 120/71 Pulse Oximetry 97 98 Oxygen Delivery Exam Narrative: Gen - well appearing female in no acute respiratory distress who is nontoxic-appearing lying semi recumbent in bed HEENT - normocephalic. Atraumatic. Pupils equal round and reactive. Extraocular motions intact. Sclera clear and anicteric. Nares patent. Oropharynx was clear. No oral lesions. Moist mucous membranes. Tongue was midline. Palate warren symmetrically. No facial asymmetry. Neck - neck was supple. No dominant adenopathy, thyromegaly or masses. 2+ carotid upstrokes without bruits. Chest - lungs are clear to auscultation bilaterally. No wheezes or crackles. Breast exam was deferred. CV - heart was regular rate and rhythm. S1-S2. No murmurs gallops or rubs. Abd - abdomen was soft, nontender and nondistended. Three surgical a site scars covered with skin glue/Dermabond. There is questionable scant purulent discharge under the most lateral site, none have drained through/under/around the skin glue. Otherwise sites are without erythema or induration. Abdomen nontender to palpation x4 quadrants except mild suprapubic TTP. Ext - no clubbing, cyanosis or edema. 2+ DP pulses bilaterally. Neuro - patient is alert and oriented x4. Strength is 5/5 in both upper and lower extremities. Cranial nerves 2-12 are intact. Speech is clear. Psych - normal mood and affect. Patient is pleasant and cooperative. Skin - warm and dry. No rashes noted. H&P: Results Labs Labs: Short CBC 08/24/24 Range/Units 20:30 WBC 9.0 (4.5-10.0) K/mm3 Hgb 12.8 (12.0-15.0) g/dL Hct 39.6 (37.0-47.0) % Plt Count 450 H (150-375) k/mm3 BMP 08/24/24 20:30 Sodium 136 L Potassium 3.7 Chloride 103 Carbon Dioxide 23 BUN 11 Creatinine 0.74 Glucose 98 Calcium 9.3 Cardiac Enzymes 08/24/24 Range/Units 20:30 Troponin I < 0.012 (0.000-0.034) ng/mL Liver Function 08/24/24 Range/Units 20:30 Total Bilirubin 0.9 (0.2-1.3) mg/dL AST 43 H (14-36) U/L ALT 37 H (6-35) U/L Alkaline Phosphatase 88 (38-126) U/L Albumin 4.3 (3.5-5.1) g/dL Urine 08/24/24 Range/Units 19:43 Urine Color Yellow (Yellow) Urine Appearance Cloudy H (Clear) Urine pH 6.5 (5.0-9.0) Ur Specific [place] 1.021 (1.001-1.035) Urine Protein 1+ H (Negative) mg/dL Urine Glucose (UA) Negative (Negative) mg/dL Assessment and Plan Assessment and plan (1) Pulmonary embolism: Code(s): I26.99 - Other pulmonary embolism without acute cor pulmonale Status: Acute Assessment and Plan: - Chest/Abd/Pelvis CTA: Acute right lower lobe subsegmental pulmonary emboli. RV/LV ratio 1.0. Subsegmental, dependent right lower lobe atelectasis/consolidation. Left medial basilar atelectasis. Trace bilateral pleural effusions - Started on Heparin, switch to Eliquis - Monitor vital signs, I&Os, shortness of breath and chest pain. Patient is a fall risk - Monitor serum electrolytes, PTT, CBC, WBC, temperature curve and cultures. - Monitor O2, supplement as needed - Echocardiogram to rule out cardiac strain - Monitor for bloody bowel movements,chest pain,SOB or dizziness/lightheadedness (2) UTI (urinary tract infection): Code(s): N39.0 - Urinary tract infection, site not specified Status: Acute Assessment and Plan: - UA: 3+ blood, 1+ Leuk Est, >100 RBC, 21-50 WBC, 1+ Bacteria - UC obtained on 08/24, pending - previous micro reviewed - started on Rocephin initial, will start Levo (3) Hepatic hemangioma: Code(s): D18.03 - Hemangioma of intra-abdominal structures Status: Acute Assessment and Plan: - Chest/Abd/Pelvis CTA: Multiple large hepatic hemangiomas, with the largest measuring up to 8.7 cm. - Abdominal US on 07/31/2024: Multiple hyperechoic hepatic masses, measuring up to 8.5 cm in maximum diameter. Findings suggest multiple hepatic hemangiomas. Pre and postcontrast MR should be considered to more definitively confirm this diagnosis. (4) Thrombocytosis: Code(s): D75.839 - Thrombocytosis, unspecified Status: Acute Assessment and Plan: - In ED: Plt >450 - Follows Dr Christian through [facility] for thrombocytosis - Heme/Onc consulted Quality VTE Prophylaxis VTE prophylaxis: pharmacologic ordered
--- NOTE | 2024-08-25 11:50 | P.HP_ITS ---
H&P: HPI History of Present Illness Date/Time: 08/25/24 11:50 Chief Complaint: Back pain shortness of breath Narrative: 38-year-old female who underwent laparoscopic simple myomectomy and destruction of endometriosis with see through the ER complaining of back pain workup included findings on CT of a pulmonary embolism. She is presently on heparin will be switched to home dose shortly. As noted the CT showed a pulmonary embolism. She had Dopplers of her legs which are pending at this point. Review of Systems Review of Systems: All systems reviewed & are unremarkable except as noted in HPI and below PMFSH Past Medical History Medical History Endometriosis determined by laparoscopy 08/20/24 Irregular bleeding Uterine fibroid Pelvic pain Thrombocytosis Surgical History Surgical History S/P laparoscopy w/ destruction of endometriosis and myomectomy w/ Dr Maximo Villagomez 08/20/24 Family History Family History Mother Heart attack Essential thrombocytosis Hypertension Social History Social History Smoking status: Never smoker Alcohol intake: never Alcohol use details: occasional Substance use: never Do You Feel Safe in your Home?: Yes Lack of Transportation: No Lack of Food: Never True Current Housing: I Have Housing Concerned About Future Housing: No Difficulty Paying Gas/Electric Bills: No Difficulty Paying for Meds: No Currently Unemployed: No Education: Master's Degree or Higher Difficulty w/ Childcare or Family Care: No Living arrangements: alone Occupation/Education: occupation Gender identity (if verbalized by the patient): Female Spiritual care concerns: No Meds Home Medications and Allergies Home Medications ?Medication ?Instructions ?Recorded ?Confirmed ?Type hydrocodone 5 mg-acetaminophen 325 1 tablet PO Q4H PRN pain #20 tabs 08/20/24 08/25/24 Rx mg tablet multivitamin 1 tablet PO DAILY 08/25/24 08/25/24 History Allergies Allergy/AdvReac Type Severity Reaction Status Date / Time amoxicillin Allergy Intermediate RASH/NUMBNESS Verified 08/20/24 06:18 IN TONGUE clavulanic acid Allergy Intermediate RASH/NUMBNESS Verified 08/20/24 06:18 IN TONGUE Vital Signs Vital Signs - 24 hr 08/24/24 19:05 08/24/24 20:49 08/24/24 22:09 Temperature 99.5 F Pulse Rate 112 H 110 H 116 H Respiratory Rate 16 15 16 Blood Pressure 138/84 128/84 132/96 H Pulse Oximetry 97 97 100 Oxygen Delivery Room Air 08/25/24 00:20 08/25/24 04:00 08/25/24 05:46 Temperature 98 F Pulse Rate 116 H 100 103 H Respiratory Rate 16 18 Blood Pressure 126/82 120/71 Pulse Oximetry 97 98 Oxygen Delivery 08/25/24 08:00 08/25/24 08:54 Temperature Pulse Rate Respiratory Rate Blood Pressure Pulse Oximetry 98 Oxygen Delivery Room Air Room Air Exam Const: General: cooperative, healthy appearing and comfortable Nutritional Appearance: average body habitus Orientation/consciousness: oriented to person, oriented to place and oriented to time Resp: Effort & Inspection: normal respiratory effort Cardio: Rate: regular rate Rhythm: regular rhythm Heart sounds: S1 normal heart sound present and S2 normal heart sound present GI: Inspection: normal to inspection and incision (Wounds are clean dry and intact) Extrem: General: normal to inspection (No Homans sign or obvious evidence of DVT) H&P: Results Labs Labs: Short CBC 08/24/24 Range/Units 20:30 WBC 9.0 (4.5-10.0) K/mm3 Hgb 12.8 (12.0-15.0) g/dL Hct 39.6 (37.0-47.0) % Plt Count 450 H (150-375) k/mm3 BMP 08/24/24 20:30 Sodium 136 L Potassium 3.7 Chloride 103 Carbon Dioxide 23 BUN 11 Creatinine 0.74 Glucose 98 Calcium 9.3 Cardiac Enzymes 08/24/24 Range/Units 20:30 Troponin I < 0.012 (0.000-0.034) ng/mL Liver Function 08/24/24 Range/Units 20:30 Total Bilirubin 0.9 (0.2-1.3) mg/dL AST 43 H (14-36) U/L ALT 37 H (6-35) U/L Alkaline Phosphatase 88 (38-126) U/L Albumin 4.3 (3.5-5.1) g/dL Urine 03/25/25 Range/Units 19:43 Urine Color Yellow (Yellow) Urine Appearance Cloudy H (Clear) Urine pH 6.5 (5.0-9.0) Ur Specific [place] 1.021 (1.001-1.035) Urine Protein 1+ H (Negative) mg/dL Urine Glucose (UA) Negative (Negative) mg/dL Assessment and Plan Assessment and plan (1) Pulmonary emboli: Code(s): I26.99 - Other pulmonary embolism without acute cor pulmonale Status: Acute (2) Pulmonary embolism: Code(s): I26.99 - Other pulmonary embolism without acute cor pulmonale Status: Acute Plan Postoperative the she appears otherwise normal so will follow at a distance
[2024-08-25] MEDS: APIXABAN 5 MG TABLET 10 MG PO ×2 (14:41→20:42)
[2024-08-25 14:51] LABS: Partial Thromboplastin Time 74.2 Seconds (22.3-36.8)
[2024-08-26] VITALS: PULSE 82
[2024-08-26 04:00] VITALS: PULSE 82
[2024-08-26 05:05] VITALS: BP 117/80; PULSE 82; RESP 18; TEMP 36.1; O2SAT 99
[2024-08-26 05:20] LABS: Basophils Percent Auto 0.2 % (0.2-1.2); Eosinophils Absolute Auto 0.1 K/mm3 (0-0.3); Eosinophils Percent Auto 1.2 % (0-4.4); Hematocrit 39.2 % (37.0-47.0); Hemoglobin 12.2 g/dL (12.0-15.0); Immature Granulocyte Absolute 0.03 K/mm3 (0.00-0.031); Immature Granulocyte Percent A 0.6 % (0-0.5); Lymphocytes Absolute Auto 0.89 K/mm3 (0.9-3.2); Lymphocytes Percent Auto 17.6 % (18.3-44.2); Mean Corpuscular HGB Conc 31.1 g/dl (32-36); Mean Corpuscular Hemoglobin 28.4 pg (26-34); Mean Corpuscular Volume 91.4 fl (80-100); Mean Platelet Volume 10.2 fl (7.4-10.4); Monocytes Absolute Auto 0.8 K/mm3 (0.1-0.6); Monocytes Percent Auto 15.6 % (2.6-8.5); Neutrophils Absolute Auto 3.3 K/mm3 (1.3-6.7); Neutrophils Percent Auto 64.8 % (45.5-73.1); Platelet Count Result 446 k/mm3 (150-375); Red Blood Count 4.29 M/mm3 (4.2-5.4); Red Cell Distribution Width 12.9 % (11.5-14.5); White Blood Count 5.1 K/mm3 (4.5-10.0)
[2024-08-26 05:31] LABS: Alanine Aminotransferase 50 U/L (6-35); Albumin Level 3.8 g/dL (3.5-5.1); Alkaline Phosphatase 89 U/L (38-126); Anion Gap 7 mmol/L (4-12); Aspartate Amino Transferase 41 U/L (14-36); Bilirubin,Total 0.8 mg/dL (0.2-1.3); Blood Urea Nitrogen 10 mg/dL (7-17); Calcium 8.9 mg/dL (8.4-10.2); Carbon Dioxide 24 mmol/L (22-30); Chloride 107 mmol/L (98-107); Estimated Glomerular Filt Rate > 60; Glucose 88 mg/dL (65-110); Potassium 4.2 mmol/L (3.4-5.0); Sodium 138 mmol/L (137-145)
[2024-08-26 08:13] VITALS: PULSE 87
[2024-08-26] MEDS: levoFLOXacin 750 MG TABLET PO (08:35)
[2024-08-26] MEDS: MULTIVITAMINS THERAPEUTIC TAB (*BKC) 1 TABLET PO (08:35)
[2024-08-26] MEDS: APIXABAN 5 MG TABLET 10 MG PO (08:35)
[2024-08-26 12:00] VITALS: PULSE 93
--- NOTE | 2024-08-26 12:49 | P.CONONC_ITS ---
Assessment and Plan Assessment and plan (1) Pulmonary embolism: Code(s): I26.99 - Other pulmonary embolism without acute cor pulmonale Status: Acute Plan Hypercoagulable state with provoked pulmonary embolism. Patient is pleasant 38-year-old female who had laparoscopic lysis of adhesion and myomectomy done due to bleeding fibroid and pelvic pain on August 20 and developed upper back and discomfort 5 days later. She was also having some shortness of breath. She denies any previous history of thromboembolic events. CT scan showed acute right lower lobe pulmonary embolism. She was started on heparin and currently on Eliquis with improvement in chest discomfort and shortness of breath. She will continue anticoagulation therapy for 3 months duration and repeat imaging studies will be performed. After completion of anticoagulation therapy will order the hypercoagulable workup. She was provided with my office information. I will follow-up in the office. Soft tissue nodules at the splenic hilum. These are likely benign finding but will perform follow-up CT scan in 3 months. HPI Data of Consult Date/Time: 08/26/24 12:49 Requesting Physician: Morris Brandon PA-C Primary Care Provider: Jamie StringerMD Consult Narrative Narrative: Marleen Donaldson is a 38 year old female with history of endometriosis and uterine fibroid came into the ER with back pain, abdominal pain with some shortness of breath on August 25, 2024.. Patient had laparoscopic destruction of endometriosis and myomectomy done due to pelvic pain and irregular bleeding on August 20, 2024. CTA chest showed acute right lower lobe pulmonary embolism with large hepatic hemangioma and multiple soft tissue nodules at the splenic hilum could be spleen 0 cis, lymphadenopathy, peritoneal metastasis and endometriosis. She was started on heparin and currently now on Eliquis. She is feeling better with improvement in chest discomfort and shortness of breath. She has no previous history of thromboembolic events. She remains quite active. Denies any other new complaints. Review of Systems 2 Review of Systems: Review of system as per HPI otherwise negative [facility] Past Medical History Medical History Endometriosis determined by laparoscopy 08/20/24 Irregular bleeding Uterine fibroid Pelvic pain Thrombocytosis Surgical History Surgical History S/P laparoscopy w/ destruction of endometriosis and myomectomy w/ Dr Maximo Villagomez 08/20/24 Family History Family History Mother Heart attack Essential thrombocytosis Hypertension Social History Social History Smoking status: Never smoker Alcohol intake: never Alcohol use details: occasional Substance use: never Do You Feel Safe in your Home?: Yes Lack of Transportation: No Lack of Food: Never True Current Housing: I Have Housing Concerned About Future Housing: No Difficulty Paying Gas/Electric Bills: No Difficulty Paying for Meds: No Currently Unemployed: No Education: Master's Degree or Higher Difficulty w/ Childcare or Family Care: No Living arrangements: alone Occupation/Education: occupation Gender identity (if verbalized by the patient): Female Spiritual care concerns: No Meds Home Medications and Allergies Home Medications ?Medication ?Instructions ?Recorded ?Confirmed ?Type hydrocodone 5 mg-acetaminophen 325 1 tablet PO Q4H PRN pain #20 tabs 08/20/24 08/25/24 Rx mg tablet multivitamin 1 tablet PO DAILY 08/25/24 08/25/24 History Allergies Allergy/AdvReac Type Severity Reaction Status Date / Time amoxicillin Allergy Intermediate RASH/NUMBNESS Verified 08/20/24 06:18 IN TONGUE clavulanic acid Allergy Intermediate RASH/NUMBNESS Verified 08/20/24 06:18 IN TONGUE Vital Signs Vital Signs - 24 hr 08/25/24 14:31 08/25/24 16:00 08/25/24 20:00 Temperature 36.1 C L Pulse Rate 83 88 98 Respiratory Rate 18 Blood Pressure 101/62 Pulse Oximetry 98 Oxygen Delivery 08/25/24 20:39 08/26/24 00:00 08/26/24 04:00 Temperature 36.4 C Pulse Rate 83 82 82 Respiratory Rate 20 Blood Pressure 117/65 Pulse Oximetry 94 Oxygen Delivery 08/26/24 05:05 08/26/24 08:00 08/26/24 08:13 Temperature 36.1 C L Pulse Rate 82 87 Respiratory Rate 18 Blood Pressure 117/80 Pulse Oximetry 99 Oxygen Delivery Room Air 08/26/24 12:00 Temperature Pulse Rate 93 Respiratory Rate Blood Pressure Pulse Oximetry Oxygen Delivery Exam 2 Narrative: Lungs are clear to auscultation bilaterally Cardiovascular regular rate rhythm no murmurs Abdomen soft nontender nondistended Extremities no edema Results Labs 08/26/24 05:04 08/26/24 05:04 Labs: Short CBC 08/26/24 Range/Units 05:04 WBC 5.1 (4.5-10.0) K/mm3 Hgb 12.2 (12.0-15.0) g/dL Hct 39.2 (37.0-47.0) % Plt Count 446 H (150-375) k/mm3 BMP 08/26/24 05:04 Sodium 138 Potassium 4.2 Chloride 107 Carbon Dioxide 24 BUN 10 Creatinine 0.66 L Glucose 88 Calcium 8.9 Liver Function 08/26/24 Range/Units 05:04 Total Bilirubin 0.8 (0.2-1.3) mg/dL AST 41 H (14-36) U/L ALT 50 H (6-35) U/L Alkaline Phosphatase 89 (38-126) U/L Albumin 3.8 (3.5-5.1) g/dL
--- NOTE | 2024-08-26 13:22 | P.DS_ITS ---
DS: Admitting Diagnosis Discharge Date 08/26/2024 Admitting Diagnosis Pulmonary Embolism DS: Discharge Diagnosis Discharge Diagnosis (1) Pulmonary embolism: Code(s): I26.99 - Other pulmonary embolism without acute cor pulmonale Status: Acute (2) UTI (urinary tract infection): Code(s): N39.0 - Urinary tract infection, site not specified Status: Acute (3) Hepatic hemangioma: Code(s): D18.03 - Hemangioma of intra-abdominal structures Status: Acute (4) Thrombocytosis: Code(s): D75.839 - Thrombocytosis, unspecified Status: Acute DS: Summary Hospital Course Reason for hospitalization: Flank pain Hospital Course: Patient is a 38-year-old female who presented to the emergency department due to back pain, abdominal pain and fevers at home. She is day 5 post-op from a fibroid and cyst removal by Dr. Maximo Villagomez. She states the back pain, which started at 3am on 08/24, is located on her right lower flank, was dull and intermittent in nature. Worse with movement and coughing, alleviated at rest. She also reported generalized abdominal discomfort that felt like gas buildup . Also endorses fevers at home, max temp being 100.5 F. Last bowel movement in afternoon of 08/24. Denies any urinary symptoms/complaints. Denies any chest pain, shortness of breath, nausea/vomiting. She recently underwent laparoscopic simple myomectomy and destruction of endometriosis, followed by Dr. Maximo Villagomez, on 08/20. No complications from this procedure. Last menstrual period started Friday morning, has associated hematuria which is normal for her. ED workup: No leukocytosis, H&H wnl, Plt 450, D-dimer 2.91, Na 136, K 3.7, Cl 103, BUN 11, Cr. 0.74, GFR>60, Glucose 98, Lactic Acid 0.9, Ca 9.3, AST 43, ALT 37, Trop <0.012, BNP 88. UA: 3+ Blood, 1+ Leuk Est, Urine RBC >100, Urine WBC >21-50 , Bacteria 1+. Viral panel negative for COVID, Flu A/B, RSV. Blood cultures negative, urine culture pending. Chest XR showed Subsegmental right basilar atelectasis/consolidation. Small right pleural effusion. Chest/Abd/Pelvis CTA showed Acute right lower lobe subsegmental pulmonary emboli, Subsegmental, dependent right lower lobe atelectasis/consolidation. Left medial basilar atelectasis. Trace bilateral pleural effusions. Multiple large hepatic hemangiomas, with the largest measuring up to 8.7 cm. Venous Doppler Study showed No lower extremity deep venous thrombosis. Dr. Maximo Villagomez was able to see the patient inpatient, states that she appears otherwise normal and will plan to monitor [employer]ED[employer]ER concerns outpatient After initially being started on Heparin, patient was switch to 10mg Eliquis. Upon discharge, pt will finish 7 total day course of 10mg Eliquis and will continue on 5mg BID eliquis after that for approximately [address] Maximo Villagomez okay with outpatient management regarding her post-surgery symptoms. Blood and urine cultures negative for any growth. Patient denying any flank pain, abdominal pain, or urinary symptoms. Will discontinue antibiotics for UTI. Echocardiogram showed no evidence of heart strain. Seen by Oncology for soft tissue nodules at spelnic hilum, likely benign, okay with management outpt. Pt otherwise stable with no further need for inpatient management. Plan to DC at this time. Time Spent with Patient Time attestation: Total time spent providing and/or coordinating discharge services:45 Exam Narrative: Gen - well appearing female in no acute respiratory distress who is nontoxic- appearing lying semi recumbent in bed HEENT - normocephalic. Atraumatic. Pupils equal round and reactive. Extraocular motions intact. Sclera clear and anicteric. Nares patent. Oropharynx was clear. No oral lesions. Moist mucous membranes. Tongue was midline. Palate warren symmetrically. No facial asymmetry. Neck - neck was supple. No dominant adenopathy, thyromegaly or masses. 2+ carotid upstrokes without bruits. Chest - lungs are clear to auscultation bilaterally. No wheezes or crackles. Breast exam was deferred. CV - heart was regular rate and rhythm. S1-S2. No murmurs gallops or rubs. Abd - abdomen was soft, nontender and nondistended. Three surgical a site scars covered with skin glue/Dermabond. There is questionable scant purulent discharge under the most lateral site, none have drained through/under/around the skin glue. Otherwise sites are without erythema or induration. Abdomen nontender to palpation x4 quadrants except mild suprapubic TTP. Ext - no clubbing, cyanosis or edema. 2+ DP pulses bilaterally. Neuro - patient is alert and oriented x4. Strength is 5/5 in both upper and lower extremities. Cranial nerves 2-12 are intact. Speech is clear. Psych - normal mood and affect. Patient is pleasant and cooperative. Skin - warm and dry. No rashes noted. DS: Data Data Completed and Pending Labs on day of discharge: Labs from last 24 hours 08/26/24 08/25/24 05:04 14:20 WBC 5.1 RBC 4.29 Hgb 12.2 Hct 39.2 MCV 91.4 MCH 28.4 MCHC 31.1 L RDW 12.9 Plt Count 446 H MPV 10.2 Immature Gran % (Auto) 0.6 H Neut % (Auto) 64.8 Lymph % (Auto) 17.6 L [place] % (Auto) 15.6 H Eos % (Auto) 1.2 Baso % (Auto) 0.2 Lymph # (Auto) 0.89 L [place] # (Auto) 0.8 H Eos # (Auto) 0.1 Baso # (Auto) 0.0 Abs Immat Gran (auto) 0.03 Absolute Neuts (auto) 3.3 Absolute Nucleated RBC 0.000 Nucleated RBC % 0.0 APTT 74.2 H Sodium 138 Potassium 4.2 Chloride 107 Carbon Dioxide 24 Anion Gap 7 BUN 10 Creatinine 0.66 L Estim Creat Clear Calc Not Reportable Estimated GFR > 60 Glucose 88 Calcium 8.9 Total Bilirubin 0.8 AST 41 H ALT 50 H Alkaline Phosphatase 89 Total Protein 7.0 Albumin 3.8 Preliminary micro results at discharge 08/24/24 20:30 Blood Culture - Preliminary Blood 08/24/24 20:43 Blood Culture - Preliminary Blood Discharge Plan Discharge Attending physician on discharge: Morris Brandon Consulting providers: Koko Gee; [place] Maza Discharging Clinician: Morris Brandon Anticipated Discharge Date/Time: 08/26/24 13:12 Patient Disposition: Home, Self-Care Activity: as tolerated Diet: as tolerated Discharge Instructions: Take medications as prescribed. You will be prescribed Eliquis, finish the total 7 days of Eliquis 10mg and then start on 5mg after that. Remain active If you develop chest pain, shortness breath, fever greater than 101, nausea, or vomiting notify a clinician or come to the emergency department Follow-up with primary care provider within 1-2 weeks Thank you for choosing [facility] for your healthcare needs Patient Instructions: Antibiotic Form, Apixaban (By mouth) Patient Language: Chinese Stand Alone Forms: General Discharge Information Follow-up/Referrals: Dawna,Jamie Hsieh MD [Primary Care Provider] - Discharge Medications: New Eliquis 5 mg Tablet 5 mg BYMOUTH Q12HR 90 Days Qty: 180 0RF Rx Instructions: Start taking AFTER you complete your doses of 10mg Eliquis Eliquis 5 mg Tablet 10 mg PO Q12HR Qty: 11 0RF Rx Instructions: Take your evening dose today. You will have 10 total doses left to finish out the next 5 days. Continue taking one dose in the morning then one at night. Then start your 5mg doses with the same time intervals. Continued hydrocodone-acetaminophen 5-325 mg tablet 1 tablet PO Q4H PRN (Reason: pain) Qty: 20 0RF multivitamin Tablet 1 tablet PO DAILY Date of admission: 08/25/24 08:04 Primary Care Provider: DawnaJamie Admitting Provider: Celina Lowery Attending physician on admission: Morris Brandon Condition: Stable Quality VTE Prophylaxis VTE prophylaxis: pharmacologic ordered Hospitalist MIPS Heart Failure (Exclusion) Patient has history of Heart Transplant or Left Ventricular Assistive Device?: No IF YES, STOP HERE Heart Failure (Qualifier) Patient has current or prior documentation of LVEF less than or equal to 40%, or mod/servere depressed LVSF?: No IF NO, STOP HERE
== END 2024-08-26 13:50 | disposition home or self-care (01) | DRG 176 ==
LOC: ANHED 19:54 → ANH3MED 08-25 02:08
PROVIDERS: Admitting Provider Internal Medicine; Emergency Provider Student in an Organized Health Care Education/Training Program; PCP Internal Medicine Gastroenterology; Visit Provider Physician Assistant
DX: I26.99 Other pulmonary embolism without acute cor pulmonale (principal); N39.0 Urinary tract infection, site not specified; D18.03 Hemangioma of intra-abdominal structures; D75.839 Thrombocytosis, unspecified; Z79.01 Long term (current) use of anticoagulants; Z20.822 Contact with and (suspected) exposure to COVID-19; Z28.21 Immunization not carried out because of patient refusal
CPT/HCPCS: 36415; 71045; 71275; 74177; 80053; 81001; 81025; 83605; 83880; 84484; 85025; 85380; 85610; 85730; 87040; 87086; 87637; 93005; 93306; 93970; 96361; 96365; 96366; 96374; 96375; 99285; A9270; G0378; J0696; J1644; J7040; Q9967

== ENCOUNTER 2024-08-28 04:49 | Emergency (ER) | payer OTHER, SELFPAY ==
[2024-08-28] VITALS (37 sets, daily range): BP systolic 113–131; BP diastolic 73–97; PULSE 86–109; RESP 18–35; TEMP 37.2–37.3; O2SAT 92–98
--- NOTE | ~2024-08-28 | XR_ITS ---
EXAMINATION: XR chest 1V portable DATE: 08/28/2024 06:21 INDICATION: Chest pain. TECHNIQUE: A single frontal view of the chest was obtained. COMPARISON: Chest single view 08/24/2024, chest CT 08/24/2024 FINDINGS: There are airspace opacities at the lung bases. There is a small right pleural effusion. No pneumothorax. The heart size is normal. IMPRESSION: 1. Airspace opacities at the lung bases, likely atelectasis. 2. Small right pleural effusion. Reviewed, dictated and finalized at location A.
--- OUTSIDE RECORDS SUMMARY | 2024-08-28 04:50 | XMS_ITS | Clinical Summary ---
Author Organization [facility] Address [address] [place] [address] Care Team Providers Care Aviation Consultant Name Role Phone Jamie Stringer MD Primary Care Provider [phone] Source Comments [facility],non-select specialty hospital Affiliates and Associated Physician Practices is amultiple site organization consisting of ambulatory clinics and hospital sitesin [place], [place], [place] and [place]. This disclosure is being madepursuant to the Care Everywhere program and may not contain all information available regarding this patient. Last updated 18.[facility] [employer] Allergies Active Allergy Reactions Criticality Noted Date [...] thrombocytopenia 08/23/2022 Acute ITP 08/23/2022 Thrombocytosis 10/07/2017 Encounters Date Type Department Care Team Description 08/25/[address] [facility] [address] [place] [address] Katy Mast RN from Last 3 Months Immunizations Name Administration Dates Next Due iNFLUENZA [...] Comments Blood Pressure 119/76 04/20/2024 3:37 PM CORONER FORENSIC TECHNICIAN Pulse 93 04/20/2024 3:37 PM CORONER FORENSIC TECHNICIAN Temperature 36.9 C (98.4 F) 04/20/2024 3:37 PM CORONER FORENSIC TECHNICIAN Respiratory Rate 20 04/20/2024 3:37 PM CORONER FORENSIC TECHNICIAN Oxygen Saturation 99% 04/20/2024 3:37 PM CORONER FORENSIC TECHNICIAN Inhaled Oxygen Concentration - - Weight 55 kg (121 lb 3.2 oz) 04/20/2024 3:37 PM CORONER FORENSIC TECHNICIAN Height 147.3 cm (4' 10 ) 10/28/2023 3:52 PM CDT Body Mass Index 25.33 10/28/2023 3:52 PM CDT Plan of Treatment Upcoming Encounters Date Type Department Care Team (Late st Contact Info) Description 10/19/2024 3:20 PM CDT Office Visit [facility] - Hematology/Oncology [address] [place] [id number] Angelito Christian MD [address] [facility] [place] [address] Health Maintenance Due Date Last Done Comments PAP SMEAR 1987 HIV SCREENING 11/19/2002 HEPATITIS C SCREENING 11/15/2005 DTAP/TDAP/TD VACCINES (1 - Tdap) 11/19/2006 HEPATITIS B VACCINE (1 of 3 - 19+ 3-dose series) 11/19/2006 COVID-19 VACCINE (2023-2 5 season) 2024 08/10/2021, 07/20/2021 INFLUENZA VACCINE [...] age to complete this topic Care Teams Aviation Consultant Relationship Specialty Start Date End Date Jamie Stringer MD [address] [place] [address] PCP - General 08/05/19
--- NOTE | 2024-08-28 05:59 | ECG_ITS ---
Test Date: 2024-08-28 06:44:14 Measurements Intervals [place] Rate: 91 P: 44 HI: 146 QRS: 23 QRSD: 86 T: 9 QT: 349 QTc: 431 Interpretive Statements SINUS RHYTHM NONSPECIFIC T-WAVE ABNORMALITY ABNORMAL ECG Electronically Signed On 08-28-2024 10:05:34 CDT by Josse Villalobos M.D.
[2024-08-28 06:23] LABS: Basophils Percent Auto 0.2 % (0.2-1.2); Eosinophils Percent Auto 0.2 % (0-4.4); Hematocrit 38.3 % (37.0-47.0); Hemoglobin 12.4 g/dL (12.0-15.0); Immature Granulocyte Absolute 0.06 K/mm3 (0.00-0.031); Immature Granulocyte Percent A 0.5 % (0-0.5); Lymphocytes Absolute Auto 0.43 K/mm3 (0.9-3.2); Lymphocytes Percent Auto 3.4 % (18.3-44.2); Mean Corpuscular HGB Conc 32.4 g/dl (32-36); Mean Corpuscular Hemoglobin 28.9 pg (26-34); Mean Corpuscular Volume 89.3 fl (80-100); Mean Platelet Volume 9.7 fl (7.4-10.4); Monocytes Absolute Auto 0.9 K/mm3 (0.1-0.6); Monocytes Percent Auto 7.2 % (2.6-8.5); Neutrophils Absolute Auto 11.3 K/mm3 (1.3-6.7); Neutrophils Percent Auto 88.5 % (45.5-73.1); Platelet Count Result 558 k/mm3 (150-375); Red Blood Count 4.29 M/mm3 (4.2-5.4); Red Cell Distribution Width 12.6 % (11.5-14.5); White Blood Count 12.8 K/mm3 (4.5-10.0)
--- NOTE | 2024-08-28 06:23 | PC.NURSE ---
Pt was here in er 08/24- given rocephin, heparin gtt, and changed to po levaquin 750mg. Pt was d/c home without abx at that time.
[2024-08-28 06:34] LABS: INR 1.5; Partial Thromboplastin Time 32.3 Seconds (22.3-36.8); Prothrombin Time 18.5 Seconds (11.1-14.7)
[2024-08-28 06:36] LABS: Alanine Aminotransferase 42 U/L (6-35); Albumin Level 4.1 g/dL (3.5-5.1); Alkaline Phosphatase 98 U/L (38-126); Anion Gap 13 mmol/L (4-12); Aspartate Amino Transferase 35 U/L (14-36); Blood Urea Nitrogen 10 mg/dL (7-17); Calcium 8.9 mg/dL (8.4-10.2); Carbon Dioxide 20 mmol/L (22-30); Chloride 105 mmol/L (98-107); Estimated Glomerular Filt Rate > 60; Glucose 99 mg/dL (65-110); Lipase 49 U/L (23-300); Potassium 3.6 mmol/L (3.4-5.0); Sodium 138 mmol/L (137-145)
[2024-08-28 06:49] LABS: Troponin I < 0.012 ng/mL (0.000-0.034)
[2024-08-28] MEDS: SODIUM CHLORIDE 0.9% IV 1,000 ML 999 ML IV CONT (07:44)
[2024-08-28] MEDS: MORPHINE SULFATE (*CRX) 4 MG/ML INJ IV PUSH (07:45)
--- OUTSIDE RECORDS SUMMARY | 2024-08-28 07:46 | XMS_ITS | Clinical Summary ---
Author Organization [facility] Address [address] [place] [address] Care Team Providers Care Hand Collator Name Role Phone Jamie Stringer MD Primary Care Provider [phone] Source Comments [facility],non-[facility] Affiliates and Associated Physician Practices is amultiple site organization consisting of ambulatory clinics and hospital sitesin [place], [place], [place] and [place]. This disclosure is being madepursuant to the Care Everywhere program and may not contain all information available regarding this patient. Last updated 18.[facility] [employer] Allergies Active Allergy Reactions Criticality Noted Date [...] Type Department Care Team Description 08/25/2024 Telephone [facility] [address] [place] [address] Katy Mast RN from Last [...] Comments Blood Pressure 119/76 04/20/2024 3:37 PM PATIENT DAY COORDINATOR Pulse 93 04/20/2024 3:37 PM PATIENT DAY COORDINATOR Temperature 36.9 C (98.4 F) 04/20/2024 3:37 PM PATIENT DAY COORDINATOR Respiratory Rate 20 04/20/2024 3:37 PM PATIENT DAY COORDINATOR Oxygen Saturation 99% 04/20/2024 3:37 PM PATIENT DAY COORDINATOR Inhaled Oxygen Concentration - - Weight 55 kg (121 lb 3.2 oz) 04/20/2024 3:37 PM PATIENT DAY COORDINATOR Height 147.3 cm (4' 10 ) 10/28/2023 3:52 PM CDT Body Mass Index 25.33 10/28/2023 3:52 PM CDT Plan of Treatment Upcoming Encounters Date Type Department Care Team (Late st Contact Info) Description 10/19/2024 3:20 PM CDT Office Visit [facility] - Hematology/Oncology [address] [place] [phone] Angelito Christian MD [address] [facility] [place] [address] Health Maintenance Due Date Last Done Comments [...] age to complete this topic Care Teams Hand Collator Relationship Specialty Start Date End Date Jamie Stringer MD [address] [place] [address] PCP - General 08/05/19
[2024-08-28 09:48] LABS: Troponin I < 0.012 ng/mL (0.000-0.034)
[2024-08-28] MEDS: APIXABAN 5 MG TABLET 10 MG PO (10:06)
--- NOTE | 2024-08-28 11:17 | ED_ITS ---
HPI - General Adult General Chief complaint: Unspecified Stated complaint: multiple complaints Time Seen by Provider: 08/28/24 07:10 History of Present Illness HPI narrative: Patient is a 38-year-old female who presents ER with complaints of right-sided back pain. Recently diagnosed with PE in admit to the hospital. Has been doing well. Has been taking Tylenol with hydrocodone every 6- 7 hours for her pain. No fevers chills or sweats. No runny nose or sore throat or productive cough. No hemoptysis. Became real lightheaded with standing up today return for further evaluation. Once mild chest tightness with this. Pain in the back is in the right upper back where she thinks she had her clots. Related Data Home Medications ?Medication ?Instructions ?Recorded ?Confirmed ?Last Taken ?Type multivitamin 1 tablet PO DAILY 08/25/24 08/25/24 Unknown History Allergies Allergy/AdvReac Type Severity Reaction Status Date / Time amoxicillin Allergy Intermediate RASH/NUMBNESS Verified 08/28/24 05:53 IN TONGUE clavulanic acid Allergy Intermediate RASH/NUMBNESS Verified 08/28/24 05:53 IN TONGUE Review of Systems 2 Review of Systems: All systems reviewed & are unremarkable except as noted in HPI and below Constitutional: Constitutional: Reports no additional constitutional complaints Cardiovascular: Cardiovascular: Reports no additional cardiovascular complaints Respiratory: Respiratory: Reports no additional respiratory complaints Gastrointestinal: Gastrointestinal: Reports no additional gastrointestinal complaints [facility] Past Medical History Medical History Endometriosis determined by laparoscopy 08/20/24 Irregular bleeding Uterine fibroid Pelvic pain Thrombocytosis Surgical History Surgical History S/P laparoscopy w/ destruction of endometriosis and myomectomy w/ Dr Maximo Villagomez 08/20/24 Family History Family History Mother Heart attack Essential thrombocytosis Hypertension Social History Social History Smoking status: Never smoker Alcohol intake: never Alcohol use details: occasional Substance use: never Do You Feel Safe in your Home?: Yes Lack of Transportation: No Lack of Food: Never True Current Housing: I Have Housing Concerned About Future Housing: No Difficulty Paying Gas/Electric Bills: No Difficulty Paying for Meds: No Currently Unemployed: No Education: Master's Degree or Higher Difficulty w/ Childcare or Family Care: No Living arrangements: alone Occupation/Education: occupation Gender identity (if verbalized by the patient): Female Spiritual care concerns: No Exam 2 Narrative: GENERAL: Well-appearing, well-nourished, and in no acute distress. HEAD: Normocephalic, atraumatic. ENT: Mucous membranes moist. NECK: Supple. CHEST: Clear to auscultation. No respiratory distress. HEART: Regular rate and rhythm. Normal peripheral pulses. ABDOMEN: Soft, nontender, nondistended. No CVA tenderness. EXTREMITIES: Normal range of motion. No edema. SKIN: Warm, dry, no rash. NEURO: Alert and oriented x3. PSYCH: Normal mood and affect. Course Course Emergency Course: PE was located in the right lower lobe. Patient has some pleural effusion which is felt to be likely causing her discomfort in her back. Patient feels improved after pain medication IV fluid. Ambulatory without issue. Nonspecific leukocytosis. Appropriate for discharge home and follow-up with PCP. Recommend scheduled Tylenol for home. Vital Signs Vital signs: Vital Signs Temperature 99.1 F 08/28/24 04:50 Pulse Rate 106 H 08/28/24 04:50 Respiratory Rate 18 08/28/24 04:50 Blood Pressure 116/77 08/28/24 04:50 Pulse Oximetry 92 08/28/24 04:50 Oxygen Delivery Room Air 08/28/24 04:50 Temperature 99 F 08/28/24 05:47 Pulse Rate 107 H 08/28/24 07:30 Respiratory Rate 19 08/28/24 07:30 Blood Pressure 118/89 08/28/24 07:30 Pulse Oximetry 96 08/28/24 07:30 Oxygen Delivery Room Air 08/28/24 05:42 Medical Decision Making Vital Signs Vital Signs: Vital Signs Temperature 99.1 F 08/28/24 04:50 Pulse Rate 106 H 08/28/24 04:50 Respiratory Rate 18 08/28/24 04:50 Blood Pressure 116/77 08/28/24 04:50 Pulse Oximetry 92 08/28/24 04:50 Oxygen Delivery Room Air 08/28/24 04:50 Temperature 99 F 08/28/24 05:47 Pulse Rate 107 H 08/28/24 07:30 Respiratory Rate 19 08/28/24 07:30 Blood Pressure 118/89 08/28/24 07:30 Pulse Oximetry 96 08/28/24 07:30 Oxygen Delivery Room Air 08/28/24 05:42 Lab Data 08/28/24 06:12 08/28/24 06:12 Labs: Lab Results 08/28/24 08/28/24 Range/Units 06:12 09:18 WBC 12.8 H (4.5-10.0) K/mm3 RBC 4.29 (4.2-5.4) M/mm3 Hgb 12.4 (12.0-15.0) g/dL Hct 38.3 (37.0-47.0) % MCV 89.3 (80-100) fl MCH 28.9 (26-34) pg MCHC 32.4 (32-36) g/dl RDW 12.6 (11.5-14.5) % Plt Count 558 H (150-375) k/mm3 MPV 9.7 (7.4-10.4) fl Immature Gran % (Auto) 0.5 (0-0.5) % Neut % (Auto) 88.5 H (45.5-73.1) % Lymph % (Auto) 3.4 L (18.3-44.2) % [place] % (Auto) 7.2 (2.6-8.5) % Eos % (Auto) 0.2 (0-4.4) % Baso % (Auto) 0.2 (0.2-1.2) % Lymph # (Auto) 0.43 L (0.9-3.2) K/mm3 [place] # (Auto) 0.9 H (0.1-0.6) K/mm3 Eos # (Auto) 0.0 (0-0.3) K/mm3 Baso # (Auto) 0.0 (0.0-0.1) K/mm3 Abs Immat Gran (auto) 0.06 H (0.00-0.031) K/mm3 Absolute Neuts (auto) 11.3 H (1.3-6.7) K/mm3 Absolute Nucleated RBC 0.000 (0.0-0.012) K/mm3 Nucleated RBC % 0.0 (0.0-0.2) % PT 18.5 H D (11.1-14.7) Seconds INR 1.5 APTT 32.3 (22.3-36.8) Seconds Sodium 138 (137-145) mmol/L Potassium 3.6 (3.4-5.0) mmol/L Chloride 105 (98-107) mmol/L Carbon Dioxide 20 L (22-30) mmol/L Anion Gap 13 H (4-12) mmol/L BUN 10 (7-17) mg/dL Creatinine 0.68 L (0.7-1.0) mg/dL Estim Creat Clear Calc Not Reportable Estimated GFR > 60 (59 - ) Glucose 99 (65-110) mg/dL Calcium 8.9 (8.4-10.2) mg/dL Total Bilirubin 1.0 (0.2-1.3) mg/dL AST 35 (14-36) U/L ALT 42 H (6-35) U/L Alkaline Phosphatase 98 (38-126) U/L Troponin I < 0.012 < 0.012 (0.000-0.034) ng/mL Total Protein 8.0 (6.3-8.2) g/dL Albumin 4.1 (3.5-5.1) g/dL Lipase 49 (23-300) U/L Imaging Data Radiologist's impression: ITS Impressions Chest X-Ray 08/28/24 06:22 IMPRESSION: 1. Airspace opacities at the lung bases, likely atelectasis. 2. Small right pleural effusion. ECG Data EKG #1: ECG completion date: 08/28/24 ECG completion time: 06:44 EKG Interpretation: normal rate (91), sinus rhythm, no ectopy, normal QRS, normal QT and NL axis Discharge Plan Discharge Clinical Impression: Pleural effusion, Pleurisy Patient Disposition: Home, Self-Care Condition: Stable Instructions: Pleurisy (ED), Pleural Effusion (DC) Additional Instructions: Please return to the emergency department if you develop severe and persistent chest pain, difficulty breathing, dizziness, leg swelling or if you are coughing up blood as these can be signs of a medical emergency. Please call your doctor for a follow up appointment to determine the need for further testing. Patient Language: Lithuanian Prescriptions: No Action hydrocodone-acetaminophen 5-325 mg tablet 1 tablet PO Q4H PRN (Reason: pain) Qty: 20 0RF multivitamin Tablet 1 tablet PO DAILY Eliquis 5 mg Tablet 5 mg BYMOUTH Q12HR 90 Days Qty: 180 0RF Rx Instructions: Start taking AFTER you complete your doses of 10mg Eliquis Eliquis 5 mg Tablet 10 mg PO Q12HR Qty: 11 0RF Rx Instructions: Take your evening dose today. You will have 10 total doses left to finish out the next 5 days. Continue taking one dose in the morning then one at night. Then start your 5mg doses with the same time intervals. Follow-up/Referrals: Myke,Jamie Hsieh MD [Primary Care Provider] - 1 Week
== END 2024-08-28 11:37 | disposition home or self-care (01) ==
PROVIDERS: Emergency Medicine; Emergency Provider Emergency Medicine; PCP Internal Medicine Gastroenterology
DX: J90 Pleural effusion, not elsewhere classified (principal); Z86.711 Personal history of pulmonary embolism; Z79.01 Long term (current) use of anticoagulants; R94.31 Abnormal electrocardiogram [ECG] [EKG]
CPT/HCPCS: 36415; 71045; 80053; 83690; 84484; 85025; 85610; 85730; 93005; 96361; 96374; 99284; A9270; J2270; J7030